=== PATIENT | male | born 1945 | race Caucasian/White ===

== ENCOUNTER 2019-11-04 06:55 | Day surgery (SDC) | payer MEDICARE, SELFPAY ==
[2019-11-03 09:55] VITALS: BMI 26.6
[2019-11-04 07:26] VITALS: BP 142/79; PULSE 82; RESP 18; TEMP 36.4; O2SAT 97
--- NOTE | 2019-11-04 07:36 | ANES.PREANE2 ---
Pre-Anesthetic Assessment Pre-Anesthetic Assessment: Height/Weight: Height 1.65 m Weight 72.575 kg Temp Pulse Resp BP Pulse Ox 97.6 F 82 18 142/79 97 11/04/19 07:26 11/04/19 07:26 11/04/19 07:26 11/04/19 07:26 11/04/19 07:26 Proposed Procedure: Operation Date: 11/04/19 08:30 Proposed Procedures p Inguinal Hernia Repair w/ Mesh(Right) - Rosalio Chan MD Last intake: Intake Last Liquid Date 11/04/19 Last Liquid Time 06:00 Last Solid Date 11/03/19 Last Solid Time 17:00 Social: Social History: Tobacco (quit) and No alcohol Exam: Pre-Anes Outpt Exam: alert, oriented x 3, clear to auscultation bilaterally and regular rate & rhythm Airway: Submandibular: WNL Cervical ROM: WNL MP: 2 Dentition: False (upper and lower) History/ROS: No significant history except as noted Pulmonary: Pulmonary: None reported CV/HEM: CV/HEM: CAD, HTN and IN : : None reported Hepatic: Hepatic: None reported GI: GI: None reported Metabolic: Metabolic: Hyperlipidemia Musc/skel: Musc/skel: RA Neuropsych: Neuropsych: None reported Anesthetic Plan: ASA status: 3 Anesthesia: Anesthesia Evaluation and MAC Risk of > 500 ml blood loss (7ml/kg in children): No PFSH Anesthesia PFSH: Medical History History of BPH Hx of coronary artery disease Hx of hypercholesterolemia Hx of primary hypertension Hx of rheumatoid arthritis Surgical History Hx of angioplasty Hx of bilateral cataract extraction Hx of hand surgery Hx of inguinal hernia repair Family History Other Diabetes Social History Smoking and tobacco status: former smoker Data Anesthesia Cardiac Studies: No Data to Display
--- NOTE | 2019-11-04 07:47 | W.PM.OPSUD ---
Surgery/Procedure H&P Update DATE OF PROCEDURE: November 04, 2019 DATE H&P PERFORMED: 10/19/19 H&P UPDATE INFORMATION: No changes to prior documentation PLANNED PROCEDURE: Operation Date: 11/04/19 08:30 Proposed Procedures p Inguinal Hernia Repair w/ Mesh(Right) - Rosalio Chan MD
[2019-11-04] MEDS: sodium chloride 0.9% 1,000 ML 30 ML IV (07:49)
--- NOTE | 2019-11-04 09:28 | PM.OP ---
Operative Report Date of procedure: November 04, 2019 Pre-op Diagnosis: Right inguinal hernia. Post-op Diagnosis: Right indirect inguinal hernia. Procedure Done: Repair of right inguinal hernia with mesh. Implants: Large mesh plug. Pathology: none sent Surgeon: Rosalio Chan Anesthesia: MAC Estimated blood loss (mL): 5 Complications: None. Condition: stable Disposition: same day Procedure: The patient was brought to the operating room and was placed in a supine position on the operating room table. A monitored anesthetic was induced. The right inguinal region was prepped and draped in a sterile fashion. A combination of 1% lidocaine and 0.5% bupivacaine with 1-200,000 parts epinephrine was used for local anesthesia throughout the procedure. A transverse incision was carried out above the level of the pubic tubercle. Cautery was used to divide the subcutaneous tissue down to the external oblique aponeurosis which was incised in parallel with its fibers over the inguinal canal. The spermatic cord was looped with a [place] drain. An indirect hernia was found at the internal ring. The hernia was large enough, however, that had obliterated almost the entire floor of the inguinal canal down to the tubercle. Some preperitoneal fat coming through the area of the previous internal ring was isolated and was excised at the internal ring. The hernia sac and contents were carefully freed from the cord structures down to the internal ring and the hernia sac was reduced. A large mesh plug was used to hold the hernia sac in a reduced position and was held in place with sutures of 0 Prolene that were used to connect the conjoined area medially to the reflecting edge of Poupart's ligament laterally all the way down to the tubercle, essentially reconstructing the inguinal canal floor. The onlay patch was anchored at the tubercle with a suture of 0 Prolene and was laid along the new inguinal canal floor, allowing the cord structures to pass through the precut hole in the mesh. The two wings of mesh were sewn to each other above the level of the internal ring with a suture of 0 Prolene. The external oblique aponeurosis was closed over the top of the cord using a running suture of 3-0 Vicryl. The wound was irrigated with saline. The subcutaneous tissue was brought together with a simple suture of 3-0 Vicryl and the skin was approximated using a running subcuticular suture of 3-0 Vicryl. Benzoin and Steri-Strips were placed over the incision and a sterile bandage followed. The patient was taken to the recovery area in stable condition postoperatively.
[2019-11-04 09:43] VITALS: BP 94/41; PULSE 77; RESP 16; TEMP 36.1; O2SAT 95
[2019-11-04 10:05] VITALS: BP 118/55; PULSE 69; RESP 18; TEMP 36.5; O2SAT 96
== END 2019-11-04 10:30 | disposition home or self-care (01) ==
PROVIDERS: PCP Family Medicine; Visit Provider Surgery
PROC: (CPT 49505; principal; 2019-11-04 08:30)
DX: K40.90 Unilateral inguinal hernia, without obstruction or gangrene, not specified as recurrent (principal); I10 Essential (primary) hypertension; M06.9 Rheumatoid arthritis, unspecified; N40.0 Benign prostatic hyperplasia without lower urinary tract symptoms; Z79.891 Long term (current) use of opiate analgesic; Z79.02 Long term (current) use of antithrombotics/antiplatelets; I25.10 Atherosclerotic heart disease of native coronary artery without angina pectoris; I25.2 Old myocardial infarction; E78.5 Hyperlipidemia, unspecified
CPT/HCPCS: 49505; 12345; C1781; J0690; J2001; J2704; J3010; J3490; J7030

== ENCOUNTER → 2020-10-30 14:12 | Outpatient (BNVA) | payer MEDICARE, SELFPAY | PROVIDERS: PCP Family Medicine; Referring Provider Nurse Practitioner Family; Visit Provider Orthopaedic Surgery | DX: M25.511 Pain in right shoulder (principal) | CPT/HCPCS: 73030 ==

== ENCOUNTER → 2021-08-29 08:18 | Outpatient (BNVA) | payer MEDICARE, SELFPAY | PROVIDERS: PCP Family Medicine; Referring Provider Nurse Practitioner Family; Visit Provider Specialist | DX: M19.011 Primary osteoarthritis, right shoulder (principal); M75.121 Complete rotator cuff tear or rupture of right shoulder, not specified as traumatic | CPT/HCPCS: 73030 ==

== ENCOUNTER 2023-02-06 18:43 | Inpatient (IN) | payer MEDICARE, SELFPAY ==
[2023-02-06] VITALS (7 sets, daily range): BP systolic 118–143; BP diastolic 68–92; PULSE 93–98; RESP 14–18; TEMP 36.6; O2SAT 88–94; BMI 24.3
--- NOTE | 2023-02-06 19:04 | XRR_ITS ---
PROCEDURE INFORMATION: Exam: XR Chest Exam date and time: 02/06/2023 7:12 PM Age: 77 years old Clinical indication: Shortness of breath; Additional info: SOB TECHNIQUE: Imaging protocol: Radiologic exam of the chest. Views: 1 view. COMPARISON: CR XR shoulder RT min 2V* [id number] 08/29/2021 8:26 AM FINDINGS: Lungs: Mild elevation left hemidiaphragm with scattered subsegmental atelectasis left lower lung zone. Indistinct nodular density right tracheobronchial angle with some adjacent indistinct linear opacities right upper lobe of uncertain etiology. Pleural spaces: Unremarkable. No pleural effusion. No pneumothorax. Heart/Mediastinum: Heart appears borderline enlarged on this portable chest. Bones/joints: Unremarkable for age. XR/XR chest 1V portable [id number] IMPRESSION: 1. Mild elevation left hemidiaphragm with scattered subsegmental atelectasis left lower lung zone. 2. Nonspecific findings right upper lobe for which follow-up CT chest recommended for further assessment.
--- NOTE | 2023-02-06 19:07 | PC.NURSE ---
Report received from MAGDA Montanez at this time
[2023-02-06 19:34] LABS: ABG PH Result 7.42 (7.35-7.45); Arterial Blood Gas Hematocrit 44.7 % (42-52); Base Excess ABG 2.1 mmol/L (-2.0-2.0); Blood Gas Allen Test Pos; Blood Gas Sample Site Radial, left; Blood Gas Sample Type Arterial; Carboxyhemoglobin 1.6 %THgb (0.4-20.1); HCO3 ABG 26.8 mmol/L (22-26); Methemoglobin 0.4 % (0.4-1.5); Oxygen Device NC; PO2 ABG 60.6 mmHg (80.0-100.0); Total Hemoglobin 14.6 g/dL (14-18)
[2023-02-06] MEDS: morphine 4 mg/mL SDV 1 mL 2 MG IVP (19:34)
[2023-02-06 19:55] LABS: Basophils % 0.3 %; Eosinophils # 0.1 10^3/uL (0.0-0.8); Eosinophils % 0.6 %; Hematocrit 44.2 % (42.0-52.0); Hemoglobin 14.5 g/dL (11.7-16.6); Lymphocytes # 1.5 10^3/uL (0.8-4.8); Lymphocytes % 10.8 %; Mean Corpuscular HGB Conc 32.8 g/dL (30.0-36.0); Mean Corpuscular Hemoglobin 31.4 pg (28.0-34.0); Mean Corpuscular Volume 95.7 fl (80-94); Mean Platelet Volume 10.9 fL (7.4-10.4); Monocytes # 1.7 10^3/uL (0.2-0.9); Monocytes % 12.1 %; Neutrophils # 10.66 10^3/uL (1.8-7.7); Neutrophils % 75.5 %; Nucleated Red Blood Cells % 0 %; Platelet Count 165 10^3/cmm (130-400); Red Blood Count 4.62 10^6/uL (4.1-5.3); White Blood Count 14.1 10^3/uL (4.0-10.0)
[2023-02-06 20:09] LABS: Troponin T (5th) Once 24 ng/L (0-15)
[2023-02-06 20:21] LABS: D Dimer >= 20.00 ug/mIFEU (0-0.59)
[2023-02-06 20:25] LABS: Alanine Aminotransferase 25 U/L (0-41); Albumin Level 4.1 g/dL (3.5-5.2); Alkaline Phosphatase 57 U/L (40-130); Anion Gap 15.5 (5-19); Aspartate Amino Transferase 39 U/L (0-40); Blood Urea Nitrogen 19 mg/dL (8-23); Calcium 9.1 mg/dL (8.5-10.5); Carbon Dioxide 24 mmol/L (22-29); Chloride 102 mmol/L (98-107); Glucose 112 mg/dL (65-115); NT Pro B Type Natriuretic Pept 136 pg/mL (0-450); Osmolality Calculated 289 mOsm/kg (285-295); Potassium 3.5 mmol/L (3.5-5.1); Sodium 138 mmol/L (136-145); Total Bilirubin 0.8 mg/dL (0.15-1.2); Total Protein 6.1 g/dL (6.6-8.7)
--- NOTE | 2023-02-06 20:34 | CTR_ITS ---
PROCEDURE INFORMATION: Exam: CTA Chest With Contrast Exam date and time: 02/06/2023 9:22 PM Age: 77 years old Clinical indication: Abnormal findings; Abnormal diagnostic tests; Elevated d-dimer; Shortness of breath; Prior surgery; Surgery date: 6+ months; Surgery type: Coronary angioplasty; Patient HX: SOB with hypxoia. D dimer >than 20.0; Additional info: SOB. Hypoxia with elevated d-dimer TECHNIQUE: Imaging protocol: Computed tomographic angiography of the chest with contrast. Exam focused on the arteries. 3D rendering (Not supervised by radiologist): MIP and/or 3D reconstructed images were created by the technologist. Radiation optimization: All CT scans at this facility use at least one of these dose optimization techniques: automated exposure control; mA and/or kV adjustment per patient size (includes targeted exams where dose is matched to clinical indication); or iterative reconstruction. Contrast material: OMNI 350; Contrast volume: 76 ml; Contrast route: INTRAVENOUS (IV); REPORTING DATA: Count of CT and Cardiac NM exams in prior 12 months: This patient has received 0 known CTs and 0 known cardiac nuclear medicine studies in the 12 months prior to the current study. COMPARISON: CT angio chest performed 2009 RADIATION DOSE METRICS: Total DLP (mGy-cm): 315.76 FINDINGS: Pulmonary arteries: Pulmonary vasculature is adequately opacified without filling defects or other evidence of acute pulmonary embolism. Aorta: Diffuse atherosclerotic changes throughout the thoracic aorta. No aortic aneurysm or evidence of dissection. Lungs: Moderate elevation left hemidiaphragm with left basilar subsegmental atelectasis. Indistinct masslike soft tissue thickening along the right tracheobronchial angle which in the coronal plane measures 4.3 x 2.2 cm with some localized thickening of the adjacent mediastinal pleural reflection developed from prior study concerning for possibility of neoplastic process and needs further evaluation. There is mild chronic biapical fibrosis as well as some subpleural interstitial lung changes that are probably chronic. Pleural spaces: See Lungs finding. Heart: Heart is mildly enlarged. Moderate calcification of coronary arteries. No significant pericardial effusion. Lymph nodes: Mild mediastinal lymphadenopathy some of which is partially calcified stable and presumed granulomatous in nature. Bones/joints: Unremarkable. No acute fracture. Soft tissues: Unremarkable. CT/CT angio chest PE protcl [id number] IMPRESSION: 1. Negative CT angiogram of the chest. No evidence of acute pulmonary embolism. 2. Interval development of focal masslike soft tissue thickening along the right tracheobronchial angle concerning for possible neoplastic process. CT PET scan recommended for further assessment. 3. Mild mediastinal lymphadenopathy partially calcified, stable from 2009 likely granulomatous in nature. A 4. Chronic elevation left hemidiaphragm with left lower lobe subsegmental atelectasis. 5. Additional nonemergent findings as above.
--- NOTE | 2023-02-06 20:39 | ED_ITS ---
HPI - SOB/Dyspnea General: Chief Complaint: Shortness of Breath/Dyspnea Stated Complaint: resp distress Time Seen by Provider: 02/06/23 19:03 History of Present Illness: HPI Narrative: 77-year-old male presented emergency room via EMS with a complaint of shortness of breath since this morning. Patient reveals a history of tobacco abuse but stopped smoking about 50 years ago. Denies any COPD or emphysema. Upon present emergency room patient was complaining of lower back pain and described the pain as sharp sensation with severity of 9 out of 10 patient reveals that he fell off a ladder to 3 days ago. Patient denies any lower extremity numbness or tingling. Bowel or bladder dysfunction. Denies any head injury or loss of consciousness no sick contact or recent foreign travel. Denies any cough, coughing up blood or vomiting blood. Associated symptoms: Deny chest congestion or hemoptysis Review of Systems General: Reports: 10 or more systems reviewed and unremarkable except in HPI and below Resp: Reports: dyspnea; Denies: productive cough, non-productive cough, wheezing, stridor, pain on inspiration, change in phlegm color, hemoptysis or chest congestion : Denies: difficulty urinating, dysuria, urinary frequency, urinary urgency, urinary hesitancy, urinary dribbling, difficulty starting urination, change in urine stream, nocturia, oliguria, urinary incontinence, hematuria, genital pain, testicular pain, testicular mass or scrotal swelling Musc: Reports: back pain; Denies: joint swelling, joint redness, joint stiffness or limited range of motion Neuro: Denies: headache(s), numbness in extremities, weakness in extremities, sensory changes, lack of coordination or difficulty walking [facility] PFSH: Medical History (Updated 02/07/23 @ 00:23 by Dylon Cardenas MD) History of BPH Hx of coronary artery disease Hx of hypercholesterolemia Hx of primary hypertension Hx of rheumatoid arthritis Surgical History Hx of angioplasty Hx of bilateral cataract extraction Hx of hand surgery Hx of inguinal hernia repair Family History Other Diabetes Social History (Updated 02/07/23 @ 00:06 by Sandeep Moss MD) Smoking and tobacco status: former smoker Alcohol intake: former Physical Exam Const: COMMON NORMALS: no acute distress, average body habitus, patient oriented x3, no limitations, healthy appearing, alert and well nourished Neck/C-Spine: COMMON NORMALS: no JVD Chest: COMMONS NORMALS: normal inspection of the chest, normal palpation of entire chest wall, normal inspection of the breasts and normal palpation of the breasts Breast/axilla inspection: Yes normal inspection of the breasts BREAST/AXILLA PALPATION: Yes normal palpation of the breasts Resp: AUSCULTATION: diminished lung sounds Cardio: COMMON NORMALS: no JVD, regular rate, regular rhythm, S1 normal heart sound present, S2 normal heart sound present, No gallops present (Cardio), No clicks present (Cardio), No murmurs present (Cardio), No rub (Cardio) and Peripheral pulses 2+ throughout RATE: regular rate RHYTHM: regular rhythm HEART SOUNDS: S1 normal heart sound present and S2 normal heart sound present PERIPHERAL PULSES: Peripheral pulses 2+ throughout GI: COMMON NORMALS: Soft to palpation INSPECTION: No Localized GI swelling present AUSCULTATION: Yes normoactive bowel sounds PALPATION: Yes Soft to palpation and Yes Other GI palpation findings present (Right upper quadrant ecchymosis) Back/Pelvis: PELVIS: Yes buttocks normal, Yes no pain with anterior-posterior compression, Yes no pain with lateral compression and Yes tenderness over symphysis pubis OTHER: Pain along the upper lumbar and lower thoracic area. No obvious laceration, ecchymosis or contusion. Extremity: COMMON NORMALS: normal to inspection, full ROM, capillary refill normal, no joint enlargement, no clubbing, cyanosis or edema, no calf tenderness and no pedal edema Neuro: COMMON NORMALS: patient oriented x3 SENSORIUM/ORIENTATION: Yes alert Skin: COMMON NORMALS: no rashes or lesions noted, no wounds, turgor normal, no jaundice, no petechiae and no mottling GENERAL SKIN EXAM: no rashes or lesions noted and turgor normal Course Vital Signs: Vital signs: Vital Signs Temperature 98.5 F 02/07/23 03:48 Pulse Rate 75 02/07/23 05:52 Respiratory Rate 18 02/07/23 04:18 Blood Pressure 149/78 02/07/23 03:48 Pulse Oximetry 90 02/07/23 03:48 Oxygen Delivery Me thod Nasal Cannula 02/07/23 03:48 Oxygen Flow Rate 5 02/07/23 00:51 MDM - SOB/Dyspnea Medical Decision Making Patient made comfortable emergency room. Patient had extensive work-up done i ncluding CTs, CBC, CMP, ABG and chest x-ray. Discussed patient's care and lab finding with patient and family. Discussed patient with the hospitalist. Patient was admitted for further evaluation and treatment. Differential Diagnosis Likely acute exacerbation of chronic obstructive airways disease, congestive heart failure, community acquired pneumonia, asthma with exacerbation and pulmonary embolism Lab Data 02/06/23 19:25 02/06/23 19:25 Labs/Radiology: Radiology Impressions Chest X-Ray 02/06/23 19:04 IMPRESSION: 1. Mild elevation left hemidiaphragm with scattered subsegmental atelectasis left lower lung zone. 2. Nonspecific findings right upper lobe for which follow-up CT chest recommended for further assessment. Chest CTA 02/06/23 20:34 IMPRESSION: 1. Negative CT angiogram of the chest. No evidence of acute pulmonary embolism. 2. Interval development of focal masslike soft tissue thickening along the right tracheobronchial angle concerning for possible neoplastic process. CT PET scan recommended for further assessment. 3. Mild mediastinal lymphadenopathy partially calcified, stable from 2009 likely granulomatous in nature. A 4. Chronic elevation left hemidiaphragm with left lower lobe subsegmental atelectasis. 5. Additional nonemergent findings as above. Venous Duplex 02/06/23 22:17 IMPRESSION: No evidence of deep vein thrombosis. Abdomen/Pelvis CT 02/06/23 22:46 IMPRESSION: 1. Acute L1 central compression deformity with posterior bony retropulsion causing [id number] stenosis of the spinal canal. This can be further assessed with a MRI for follow-up. 2. Small soft tissue contusion injury right ventral abdominal wall. No acute intra-abdominal or intrapelvic injury identified on CT. 3. There is a 4.1 cm infrarenal abdominal aortic aneurysm present. COMMENTS: Consistent with the [employer]'s Incidental Findings Committee white paper (J Am Itz Radiol 2018): Any incidental renal lesion less than 1 cm or classified as too small to characterize, or any incidental cystic renal lesion characterized as simple-appearing, is likely benign. No follow-up imaging is recommended for these lesions per consensus recommendations based on imaging criteria. Lumbar Spine CT 02/06/23 22:46 IMPRESSION: Acute L1 central compression deformity with posterior bony retropulsion causing moderate stenosis of the spinal canal. This can be further assessed with a MRI for follow-up. Thoracic Spine CT 02/06/23 22:46 IMPRESSION: Mild superior endplate height loss is seen in T2 and T3 which is age indeterminate. Correlate with point tenderness. This can be better assessed with an MRI for follow-up. Laboratory Results WBC 14.1 10^3/uL (4.0-10.0) H 02/06/23 19:25 RBC 4.62 10^6/uL (4.1-5.3) 02/06/23 19:25 Hgb 14.5 g/dL (11.7-16.6) 02/06/23 19:25 Hct 44.2 % (42.0-52.0) 02/06/23 19:25 MCV 95.7 fl (80-94) H 02/06/23 19:25 MCH 31.4 pg (28.0-34.0) 02/06/23 19:25 MCHC 32.8 g/dL (30.0-36.0) 02/06/23 19:25 RDW 14.0 % (12.1-15.1) 02/06/23 19:25 Plt Count 165 10^3/cmm (130-400) 02/06/23 19:25 MPV 10.9 fL (7.4-10.4) H 02/06/23 19:25 Neut % (Auto) 75.5 % 02/06/23 19:25 Lymph % (Auto) 10.8 % 02/06/23 19:25 [place] % (Auto) 12.1 % 02/06/23 19:25 Eos % (Auto) 0.6 % 02/06/23 19:25 Baso % (Auto) 0.3 % 02/06/23 19:25 Neut # (Auto) 10.66 10^3/uL (1.8-7.7) H 02/06/23 19:25 Lymph # (Auto) 1.5 10^3/uL (0.8-4.8) 02/06/23 19:25 [place] # (Auto) 1.7 10^3/uL (0.2-0.9) H 02/06/23 19:25 Eos # (Auto) 0.1 10^3/uL (0.0-0.8) 02/06/23 19:25 Baso # (Auto) 0.0 10^3/uL (0.0-0.1) 02/06/23 19:25 Nucleated RBC % (auto) 0 % 02/06/23 19:25 Nucleated RBCs # 0.0 /100WBC 02/06/23 19:25 D-Dimer >= 20.00 ug/mIFEU (0-0.59) H 02/06/23 19:25 Specimen Type Arterial 02/06/23 19:25 Sample Site Radial, left 02/06/23 19:25 ABG pH 7.42 (7.35-7.45) 02/06/23 19:25 ABG pCO2 41.0 mmHg (35-45) 02/06/23 19:25 ABG pO2 60.6 mmHg (80.0-100.0) L 02/06/23 19:25 ABG HCO3 26.8 mmol/L (22-26) H 02/06/23 19:25 ABG Base Excess 2.1 mmol/L (-2.0-2.0) H 02/06/23 19:25 [place]derick Test Pos 02/06/23 19:25 Hematocrit 44.7 % (42-52) 02/06/23 19:25 Hgb O2 Saturation 91.0 % (95-100) L 02/06/23 19:25 Carboxyhemoglobin 1.6 %THgb (0.4-20.1) 02/06/23 19:25 Methemoglobin 0.4 % (0.4-1.5) 02/06/23 19:25 Total Hemoglobin 14.6 g/dL (14-18) 02/06/23 19:25 O2 Delivery Device Nc 02/06/23 19:25 O2 Liters/Min 4.0 % 02/06/23 19:25 FiO2 40.0 % 02/06/23 19:25 [place] [employer] Pumper ID [email or web address] 02/06/23 19:25 Sodium 138 mmol/L (136-145) 02/06/23 19:25 Potassium 3.5 mmol/L (3.5-5.1) 02/06/23 19:25 Chloride 102 mmol/L (98-107) 08/17/23 19:25 Carbon Dioxide 24 mmol/L (22-29) 02/06/23 19:25 Anion Gap 15.5 (5-19) 02/06/23 19:25 BUN 19 mg/dL (8-23) 02/06/23 19:25 Creatinine 0.9 mg/dL (0.7-1.2) 02/06/23 19:25 GFR Calculation Not Reportable 02/06/23 19:25 Glucose 112 mg/dL (65-115) 02/06/23 19:25 Calculated Osmolality 289 mOsm/kg (285-295) 02/06/23 19:25 Calcium 9.1 mg/dL (8.5-10.5) 02/06/23 19:25 Total Bilirubin 0.8 mg/dL (0.15-1.2) 02/06/23 19:25 AST 39 U/L (0-40) 02/06/23 19:25 ALT 25 U/L (0-41) 02/06/23 19:25 Alkaline Phosphatase 57 U/L (40-130) 02/06/23 19:25 Troponin T Gen 5 ng/L 24 ng/L (0-15) H 02/06/23 19:25 NT-Pro-B Natriuret Pep 136 pg/mL (0-450) 02/06/23 19:25 Total Protein 6.1 g/dL (6.6-8.7) L 02/06/23 19:25 Albumin 4.1 g/dL (3.5-5.2) 02/06/23 19:25 Globulin 2.0 g/dL (1.3-4.6) 02/06/23 19:25 Critical Care Time Critical Care Time: Critical Care Time: Yes Total Critical Care Time: 45 Attestation: Time spent reviewing past medical history, time spent discussing patient with the hospitalist and family member. Time spent with multiple examination after all treatments. Discharge Plan Discharge Patient Disposition: Admitted As Inpatient Admit Provider: Sandeep Moss Clinical Impression: Mass of left lung, Hypoxia, Back pain, Fall, Compression fracture Condition: Stable Coding Level of Care Code ED Infrastructure Director for Yair Ag
[2023-02-06] MEDS: iohexol 350 mg/mL 500 mL Btl (per mL) IV ×2 (21:26→23:27)
--- NOTE | 2023-02-06 22:17 | USR_ITS ---
PROCEDURE INFORMATION: Exam: US Duplex Lower Extremity Veins, Bilateral Exam date and time: 02/06/2023 10:45 PM Age: 77 years old Clinical indication: Leg, lower; Bilateral; Patient HX: PT with back and lower ext pain; Additional info: For dvt TECHNIQUE: Imaging protocol: Real-time duplex ultrasound of the bilateral extremities with 2-D ohara scale, color Doppler flow and spectral waveform analysis including responses to compression and other maneuvers (when performed) with image documentation. Complete exam focused on the lower extremity veins. COMPARISON: No relevant prior studies available. FINDINGS: Right deep veins: Unremarkable. The common femoral, femoral, proximal profunda femoral and popliteal veins are patent without thrombus. Normal Doppler waveforms. Normal compressibility and/or augmentation response. Left deep veins: Unremarkable. The common femoral, femoral, proximal profunda femoral and popliteal veins are patent without thrombus. Normal Doppler waveforms. Normal compressibility and/or augmentation response. Superficial veins: Bilateral saphenofemoral junctions are patent without thrombus. Soft tissues: Unremarkable. US/CV venous duplex [facility] [id number] IMPRESSION: No evidence of deep vein thrombosis.
--- NOTE | 2023-02-06 22:46 | CTR_ITS ---
PROCEDURE INFORMATION: Exam: CT Thoracic Spine Without Contrast Exam date and time: 02/06/2023 9:22 PM Age: 77 years old Clinical indication: Injury or trauma; Blunt trauma (contusions or hematomas); Prior surgery; Surgery date: 6+ months; Surgery type: Coronary stent. Gb; Patient HX: Fall yesterday. C/O back pain with contusion to anterior abdomen at RT lumbar region. On anticoagulants; Additional info: Pain post fall TECHNIQUE: Imaging protocol: Computed tomography of the thoracic spine without contrast. Radiation optimization: All CT scans at this facility use at least one of these dose optimization techniques: automated exposure control; mA and/or kV adjustment per patient size (includes targeted exams where dose is matched to clinical indication); or iterative reconstruction. REPORTING DATA: Count of CT and Cardiac NM exams in prior 12 months: This patient has received 0 known CTs and 0 known cardiac nuclear medicine studies in the 12 months prior to the current study. COMPARISON: 1. CR (CHEST, ) 02/06/2023 7:[address] angio chest PE protcl [id number] 02/06/2023 9:22 PM RADIATION DOSE METRICS: Total DLP (mGy-cm): 315.76 FINDINGS: Bones/joints: The T2 and T3 vertebrae have mild superior endplate height loss. The other thoracic vertebral body heights are maintained. The alignment is near anatomic. Soft tissues: Unremarkable. Lungs: Elevated left hemidiaphragm with left lower lobe infiltrate or atelectasis again present. Please see dedicated same-day CT chest for additional findings. CT/CT thoracic spine recon [id number] IMPRESSION: Mild superior endplate height loss is seen in T2 and T3 which is age indeterminate. Correlate with point tenderness. This can be better assessed with an MRI for follow-up.
--- NOTE | 2023-02-06 22:46 | CTR_ITS ---
PROCEDURE INFORMATION: Exam: CT Lumbar Spine Without Contrast Exam date and time: 02/06/2023 11:25 PM Age: 77 years old Clinical indication: Injury or trauma; Blunt trauma (contusions or hematomas); Patient HX: Fall yesterday. C/O back pain with contusion to anterior abdomen at RT lumbar region. On anticoagulants; Additional info: Pain post fall TECHNIQUE: Imaging protocol: Computed tomography of the lumbar spine without contrast. Radiation optimization: All CT scans at this facility use at least one of these dose optimization techniques: automated exposure control; mA and/or kV adjustment per patient size (includes targeted exams where dose is matched to clinical indication); or iterative reconstruction. REPORTING DATA: Count of CT and Cardiac NM exams in prior 12 months: This patient has received 0 known CTs and 0 known cardiac nuclear medicine studies in the 12 months prior to the current study. COMPARISON: 1. CT thoracic spine recon [id number] 02/06/2023 9:[address] abdomen pelvis w con* [id number] 02/06/2023 11:25 PM RADIATION DOSE METRICS: Total DLP (mGy-cm): 527.53 FINDINGS: Bones/joints: L1 acute appearing central compression deformity with approximally 25% loss of height. There is mild posterior bony retropulsion seen with moderate associated stenosis of the spinal canal. No other fracture. There are bilateral nondisplaced L5-S1 pars interarticularis defects present. Degenerative disc disease causes moderate stenosis of the spinal canal at L3-L4. Kidneys and ureters: Renal cysts again seen. Vasculature: Redemonstration of a infrarenal abdominal aortic aneurysm with associated atherosclerotic changes. Soft tissues: Unremarkable. CT/CT lumbar spine recon [id number] IMPRESSION: Acute L1 central compression deformity with posterior bony retropulsion causing moderate stenosis of the spinal canal. This can be further assessed with a MRI for follow-up.
--- NOTE | 2023-02-06 22:46 | CTR_ITS ---
PROCEDURE INFORMATION: Exam: CT Abdomen And Pelvis With Contrast Exam date and time: 02/06/2023 11:25 PM Age: 77 years old Clinical indication: Injury or trauma; Blunt; Abdominal wall; Prior surgery; Surgery date: 6+ months; Surgery type: Coronary stent. Gb; Patient HX: Fall yesterday. C/O back pain with contusion to anterior abdomen at RT lumbar region. On anticoagulants; Additional info: Pain post fall TECHNIQUE: Imaging protocol: Computed tomography of the abdomen and pelvis with contrast. Radiation optimization: All CT scans at this facility use at least one of these dose optimization techniques: automated exposure control; mA and/or kV adjustment per patient size (includes targeted exams where dose is matched to clinical indication); or iterative reconstruction. Contrast material: OMNI 350; Contrast volume: 75 ml; Contrast route: INTRAVENOUS (IV); REPORTING DATA: Count of CT and Cardiac NM exams in prior 12 months: This patient has received 0 known CTs and 0 known cardiac nuclear medicine studies in the 12 months prior to the current study. COMPARISON: CT thoracic spine recon [id number] 02/06/2023 9:22 PM RADIATION DOSE METRICS: Total DLP (mGy-cm): 527.53 FINDINGS: Lungs: Left lower lobe infiltrate or atelectasis is unchanged with comparison same day CT chest. Left hemidiaphragmatic elevation is unchanged. Diaphragm: Small-sized hiatal hernia. Liver: Normal. No mass. Gallbladder and bile ducts: Normal. No calcified stones. No ductal dilation. Pancreas: Normal. No ductal dilation. Spleen: Normal. No splenomegaly. Adrenal glands: Normal. No mass. Kidneys and ureters: Bilateral renal cysts are seen the largest in the upper pole measures 6.2 cm. Stomach and bowel: There are colonic diverticuli present without inflammation. Appendix: No evidence of appendicitis. Intraperitoneal space: Unremarkable. No free air. No significant fluid collection. Vasculature: Atherosclerotic changes of the abdominal aorta with infrarenal aneurysm measuring 4.1 cm AP dimension. No dissection is visible. Severe stenosis is seen of the origin of the left common iliac artery. Lymph nodes: Unremarkable. No enlarged lymph nodes. Urinary bladder: The bladder is distended with excreted contrast. Reproductive: The prostate gland is mildly prominent. Bones/joints: L1 acute appearing central compression deformity with approximally 25% loss of height. There is mild posterior bony retropulsion seen with [id number] associated stenosis of the spinal canal. There are bilateral nondisplaced L5-S1 pars interarticularis defects present. Soft tissues: There is a soft tissue contusion inferior right ventral abdominal wall. CT/CT abdomen pelvis w con* [id number] IMPRESSION: 1. Acute L1 central compression deformity with posterior bony retropulsion causing [id number] stenosis of the spinal canal. This can be further assessed with a MRI for follow-up. 2. Small soft tissue contusion injury right ventral abdominal wall. No acute intra-abdominal or intrapelvic injury identified on CT. 3. There is a 4.1 cm infrarenal abdominal aortic aneurysm present. COMMENTS: Consistent with the [employer]'s Incidental Findings Committee white paper (J Am Itz Radiol 2018): Any incidental renal lesion less than 1 cm or classified as too small to characterize, or any incidental cystic renal lesion characterized as simple-appearing, is likely benign. No follow-up imaging is recommended for these lesions per consensus recommendations based on imaging criteria.
--- NOTE | 2023-02-06 22:59 | PM.HP ---
Providers/Chief Complaint Admitting Physician: Sandeep Moss MD Primary Care Provider: Jovany Moncada DO Chief Complaint: resp distress History of Present Illness Fco Quinones is a 77 year old male who presents to the emergency department complaining of low back pain. I was initially called on him secondary to hypoxia, and elevated D-dimer. Upon evaluating the patient, further historical elements came to light. He reports he fell 4 days ago off a ladder. He thinks he was on the second rung. He did not have back pain initially, but in the last 24 hours has severe back pain, upper lumbar area, nonradiating. He has not had incontinence. He reports it hurts greatly, even when he tries to take a breath. He reports he was short of breath when he came in, but he thinks it was due to the pain. He has not been coughing up any sputum. He has had a little bit of vomiting. No diarrhea. No blood in stool, black or tarry stool, blood in emesis. No ill contacts. He does take Plavix. After these further history items came to light, I discussed this with the ER doctor and a CT abdomen and pelvis along with CT lung thoracolumbar spine have been ordered. Review of Systems General: Reports: 10 or more systems reviewed and unremarkable except in HPI and below Card: Denies: chest pain Resp: Reports: dyspnea; Denies: productive cough or non-productive cough GI: Reports: vomiting; Denies: abdominal pain, nausea, hematochezia or melena Medications/Allergies Home Medications Medication Instructions Recorded Confirmed Last Taken Type amlodipine 5 mg tablet 5 mg PO DAILY 11/03/19 08/29/21 11/04/19 06:00 History calcium carbonate 600 mg calcium 600 mg PO DAILY 11/03/19 08/29/21 11/03/19 18:00 History (1,500 mg) tablet clopidogrel 75 mg tablet 75 mg PO DAILY 11/03/19 08/29/21 11/02/19 History folic acid 800 mcg tablet 0.8 mg PO DAILY 11/03/19 08/29/21 11/03/19 06:00 History hydrocodone 5 mg-acetaminophen 325 1 tab PO Q6H PRN Pain 11/03/19 08/29/21 11/02/19 History mg tablet lisinopril 5 mg tablet 5 mg PO DAILY 11/03/19 08/29/21 11/04/19 06:00 History loperamide 2 mg capsule 2 mg PO DAILY PRN Diarrhea 11/03/19 08/29/21 11/03/19 06:00 History magnesium hydroxide 400 mg/5 mL 400 mg PO DAILY PRN Diarrhea 11/03/19 08/29/21 11/03/19 18:00 History oral suspension (Milk of Magnesia) methotrexate sodium 2.5 mg tablet 2.5 mg PO DAILY 11/03/19 08/29/21 11/03/19 18:00 History multivitamin 1 tab PO DAILY 11/03/19 08/29/21 11/03/19 12:00 History omega 9-lrh-apr-fish oil 120 1 cap PO DAILY 11/03/19 08/29/21 11/03/19 06:00 History mg-180 mg-500 mg capsule (Fish Oil) polyethylene glycol 3350 17 gram 17 g PO DAILY 11/03/19 08/29/21 Unknown History oral powder packet (Miralax) prednisone 5 mg tablet 5 mg PO DAILY 11/03/19 08/29/21 11/03/19 18:00 History rosuvastatin 20 mg tablet (Crestor) 20 mg PO DAILY 11/03/19 08/29/21 11/03/19 18:00 History simethicone 80 mg chewable tablet 80 mg PO DAILY 11/03/19 08/29/21 Unknown History hydrocodone 5 mg-acetaminophen 325 1 - 2 tab PO Q5H PRN pain #30 tabs 11/04/19 08/29/21 Unknown Rx mg tablet Allergies Allergy/AdvReac Type Severity Reaction Status Date / Time No Known Allergies Allergy Verified 02/06/23 18:52 PFSH Acute PFSH: Medical History (Updated 02/07/23 @ 00:23 by Dylon Cardenas MD) History of BPH Hx of coronary artery disease Hx of hypercholesterolemia Hx of primary hypertension Hx of rheumatoid arthritis Surgical History Hx of angioplasty Hx of bilateral cataract extraction Hx of hand surgery Hx of inguinal hernia repair Family History Other Diabetes Social History (Updated 02/07/23 @ 00:06 by Sandeep Moss MD) Smoking and tobacco status: former smoker Alcohol intake: former Vitals/I&O/Wt Last Vital Signs Temp 97.9 F 02/06/23 18:45 Pulse 95 02/06/23 20:05 Resp 18 02/06/23 20:05 BP 135/68 02/06/23 20:05 Pulse Ox 92 02/06/23 20:05 O2 Del Method Nasal Cannula 02/06/23 20:05 O2 Flow Rate 4 02/06/23 20:05 Weight last 48 hrs Weight 70.307 kg Physical Exam Narrative: General exam is a white male, in apparent pain, pointing to his back. He is on 4 L of oxygen. HEENT: Atraumatic and normocephalic. Oropharynx clear Neck is supple no lymphadenopathy thyromegaly Cardiovascular regular rate and rhythm, no murmur Lungs diminished breath sounds bilaterally. Occasional wheeze Abdomen is soft. Tenderness is noted over hematoma noted right ventral area approximately 8 cm in length and 4 cm in width. exams deferred Extremities no sinus clubbing or edema, no evidence of decreased sensation Back demonstrates some tenderness in the upper lumbar area. No bruising is noted Skin see findings above Neuro no obvious focal deficits Data 02/06/23 19:25 02/06/23 19:25 Other Labs: Dimer is greater than 20 ABG demonstrates a pH 7.4, PCO2 of 41, PO2 of 60 LFTs normal Troponin 24 Albumin and calcium are normal Chest x-ray which I reviewed demonstrated irregular border right lung/upper lobe. No definite infiltrate. CT of chest demonstrated no pulmonary embolism, masslike thickening right tracheobronchial angle concerning for neoplastic process, consider follow-up as well as left hemidiaphragm atelectasis versus infiltrate Venous duplex negative Abdominal pelvis CT is now back which demonstrates hematoma correlating with physical exam ventral right side, 4.1 cm infrarenal abdominal aortic aneurysm, acute L1 compression fracture Thoracic CT demonstrates some mild loss of height at T2 and T3 Lumbar CT demonstrates acute L1 compression fracture causing moderate stenosis of the spinal canal A&P Assessment and plan (1) Hypoxia: I am concerned that the etiology of this may be twofold. Certainly his pain, may be impairing his breathing somewhat. I am also concerned with vomiting and potential aspiration pneumonitis. Will place him on Zosyn for this. Sputum culture. Neb treatments every 6 hours Budesonide twice daily Wean oxygen as tolerated (2) Fall: Denies loss of consciousness Mechanical fall (3) Back pain: Patient has evidence of L1 acute compression fracture Pain control with narcotics, muscle relaxants, Toradol as needed Therapy consultation May require orthopedic spine surgery consult. Land Development Project Manager is available tomorrow and this weekend. Bladder scan to check for any urinary retention Coalce BID as will be on narcotics (4) Mass of right lung: Will require further outpatient work-up to be determined. I discussed this in detail with family and patient He does have a history of tobacco use. Plan Coronary artery disease. Hold Plavix on admission, reassessing whether vertebroplasty may be needed soon History of rheumatoid arthritis. Hold immunosuppressant currently. Increase prednisone to 5 mg twice daily, stress dose Hypertension, continue home medications Hyperlipidemia continue home medications Multiple other medical problems as outlined in past medical history Full code SCDs for DVT prophylaxis. He has significant hematoma on his abdomen and this is a contraindication for anticoagulation currently. Reevaluate daily. Attestations Medical Necessity Statement*: Will require greater than 2 midnight stay for evaluation and treatment of pneumonia requiring oxygen, severe back pain and acute compression fracture Diagnoses Hypoxia R09.02 Fall W19.XXXA Back pain M54.9 Mass of right lung R91.8 Time Spent (min) 67
[2023-02-06] MEDS: HYDROmorphone 1 mg/mL INJ 1 mL IVP (23:43)
[2023-02-07] VITALS (13 sets, daily range): BP systolic 105–149; BP diastolic 61–86; PULSE 75–95; RESP 14–20; TEMP 36.4–36.9; O2SAT 90–93
[2023-02-07] MEDS: sodium chloride 0.9% 1,000 ML 75 ML IV (02:22)
[2023-02-07] MEDS: piperacillin-tazobactam 3.375 GM in sodium chloride 0.9% (plus) 50 ML IV ×3 (02:22→17:50)
[2023-02-07] MEDS: morphine 4 mg/mL SDV 1 mL 2 MG IVP ×2 (04:18→10:08)
--- NOTE | 2023-02-07 06:32 | PM.CONSULT ---
Providers/Reason For Consult Consulting Physician/Specialty*: hospitalist Reason for Consult*: L1 compression fracture Attending Physician: Sandeep Moss MD Primary Care Provider: Jovany Moncada DO History of Present Illness History of Present Illness Fco Quinones is a 77 year old male who fell off a ladder approximately 4 days ago. Did not have immediate pain however pain has been progressively getting worse over the past couple days. Patient is currently laying in bed was sleeping I woke him up to examine him. Patient does not complain of any weakness numbness or tingling. Review of Systems General: Reports: 10 or more systems reviewed and unremarkable except in HPI and below Card: Denies: chest pain Resp: Reports: dyspnea; Denies: productive cough or non-productive cough GI: Reports: vomiting; Denies: abdominal pain, nausea, hematochezia or melena Medications/Allergies Home Medications Medication Instructions Recorded Confirmed Last Taken Type amlodipine 5 mg tablet 5 mg PO DAILY 11/03/19 08/29/21 11/04/19 06:00 History calcium carbonate 600 mg calcium 600 mg PO DAILY 11/03/19 08/29/21 11/03/19 18:00 History (1,500 mg) tablet clopidogrel 75 mg tablet 75 mg PO DAILY 11/03/19 08/29/21 11/02/19 History folic acid 800 mcg tablet 0.8 mg PO DAILY 11/03/19 08/29/21 11/03/19 06:00 History hydrocodone 5 mg-acetaminophen 325 1 tab PO Q6H PRN Pain 11/03/19 08/29/21 11/02/19 History mg tablet lisinopril 5 mg tablet 5 mg PO DAILY 11/03/19 08/29/21 11/04/19 06:00 History loperamide 2 mg capsule 2 mg PO DAILY PRN Diarrhea 11/03/19 08/29/21 11/03/19 06:00 History magnesium hydroxide 400 mg/5 mL 400 mg PO DAILY PRN Diarrhea 11/03/19 08/29/21 11/03/19 18:00 History oral suspension (Milk of Magnesia) methotrexate sodium 2.5 mg tablet 2.5 mg PO DAILY 11/03/19 08/29/21 11/03/19 18:00 History multivitamin 1 tab PO DAILY 11/03/19 08/29/21 11/03/19 12:00 History omega 2-nqy-oxh-fish oil 120 1 cap PO DAILY 11/03/19 08/29/21 11/03/19 06:00 History mg-180 mg-500 mg capsule (Fish Oil) polyethylene glycol 3350 17 gram 17 g PO DAILY 11/03/19 08/29/21 Unknown History oral powder packet (Miralax) prednisone 5 mg tablet 5 mg PO DAILY 11/03/19 08/29/21 11/03/19 18:00 History rosuvastatin 20 mg tablet (Crestor) 20 mg PO DAILY 11/03/19 08/29/21 11/03/19 18:00 History simethicone 80 mg chewable tablet 80 mg PO DAILY 11/03/19 08/29/21 Unknown History hydrocodone 5 mg-acetaminophen 325 1 - 2 tab PO Q5H PRN pain #30 tabs 11/04/19 08/29/21 Unknown Rx mg tablet Allergies Allergy/AdvReac Type Severity Reaction Status Date / Time No Known Allergies Allergy Verified 02/06/23 18:52 Current Medications Generic Name Dose Route Start Last Admin Trade Name Freq PRN Reason Stop Dose Admin Sodium Chloride 1,000 mls @ 75 mls/hr 02/07/23 01:41 02/07/23 02:22 Sodium Chloride 0.9% IV 75 mls/hr .[id number] RAHAT Administration Piperacillin Sod/Tazobactam 50 mls @ 12.5 mls/hr 02/07/23 02:30 02/07/23 02:22 Sod 3.375 gm/ Sodium Chloride IV 12.5 mls/hr Q8H RAHAT Administration Morphine Sulfate 2 mg 02/07/23 01:41 02/07/23 04:18 Morphine 4 Mg/Ml Sdv 1 Ml IVP 2 mg Q4H PRN Administration SEVERE PAIN PFSH Acute PFSH: Medical History (Updated 02/07/23 @ 00:23 by Dylon Cardenas MD) History of BPH Hx of coronary artery disease Hx of hypercholesterolemia Hx of primary hypertension Hx of rheumatoid arthritis Surgical History Hx of angioplasty Hx of bilateral cataract extraction Hx of hand surgery Hx of inguinal hernia repair Family History Other Diabetes Social History (Updated 02/07/23 @ 00:06 by Sandeep Moss MD) Smoking and tobacco status: former smoker Alcohol intake: former Vitals/I&O/Wt Last Vital Signs Temp 98.5 F 02/07/23 03:48 Pulse 75 02/07/23 05:52 Resp 18 02/07/23 04:18 BP 149/78 02/07/23 03:48 Pulse Ox 90 02/07/23 03:48 O2 Del Method Nasal Cannula 02/07/23 03:48 O2 Flow Rate 5 02/07/23 00:51 02/06/23 02/06/23 02/07/23 14:59 22:59 06:59 Output Total 1000 / 1000 Balance -1000 / -1000 Weight last 48 hrs Weight 155 lb Physical Exam Narrative: Patient has tenderness to palpation of his spine over the fractured area. Difficulty with moving in bed. CONSTITUTIONAL: The patient is a normal appearing [] in no apparent distress. GENERAL: Patient in no acute distress. CARDIAC: Regular rate and rhythm. CHEST: Normal inspiratory effort, normal respiratory rate. ABDOMEN: Soft and nontender. SKIN: Clear, warm and intact. NEURO?PSYCH: The patient is alert and oriented to person, place and time. Sensorv /SILT Motor StrengthShoulder abduction C5 5/5Wrist extension C6 5/5Elbow extension C7 5/5Hand Forest Products Teacher C8 5/5Finger abduction T15/5 Radial/ Ulnar/ Median n intact LowerSensory (SILT)Motor StrengthHin flexion L2/3Ant/inner thigh 5/5Hip adduction L2/3 5/5Knee extension L4 Lat thigh, 5/5Toe dorsiflexion L5 5/5Ankle dorsiflexion L5/ [id number] flexion S1 5/5 DTRBleeps 2+Triceps 2+Brachioradialis 2+Patellar 2+Achilles 2+ Urinary Catheter Management: Francois: Cath Placed During This Visit: yes Urinary Catheter Date of Insertion: 02/07/23 Urinary Catheter Time of Insertion: 02:33 Data 02/06/23 19:25 02/06/23 19:25 A&P Assessment and plan (1) Compression fracture: Patient has a L1 compression fracture. At this point I would treat in a TLSO brace. Once you have to get up in the TLSO brace and would like to get upright x-rays. He is a potential candidate for a kyphoplasty however if he does improve with the TLSO this would be unnecessary. Patient is on Plavix so would have to hold Plavix for 5 days if he is going to proceed with a kyphoplasty. I would like to see how he does with the TLSO brace and getting up. If he is unable to get up due to the pain then we might have to hold Plavix and then proceed with kyphoplasty in 5 days. We will check again on him tomorrow to see how he is doing. Coding Level of Care Code Acute Code for Chg Fwd Diagnoses Compression fracture
--- NOTE | 2023-02-07 07:36 | PC.PHAR ---
pt sts he is not sure of the names of most of his scripts- pt sts if its filled hes taking it- medications verified using external med list last filled and home med list
[2023-02-07] MEDS: ondansetron 2 mg/ML SDV 2 mL 4 MG IVP (08:52)
[2023-02-07] MEDS: lisinopril 5 mg Tablet PO (09:03)
[2023-02-07] MEDS: tamsulosin 0.4 mg Capsule PO ×2 (09:04→09:05)
[2023-02-07] MEDS: docusate sodium 100 mg Capsule PO ×2 (09:04→17:50)
[2023-02-07] MEDS: amlodipine 5 mg Tablet PO (09:04)
[2023-02-07] MEDS: predniSONE 5 mg Tablet PO ×2 (09:04→17:50)
[2023-02-07] MEDS: polyethylene glycol 3350 Pkt 17 gm PO (09:04)
[2023-02-07 09:41] LABS: Add Urine Microscopic? YES; Bilirubin Urine Neg (Negative); Blood Urine Neg (Negative); Glucose Urine UA Norm (Normal); Ketones Urine Negative (Negative); Leukocyte Esterase Urine Negative (Negative); Nitrate Urine Negative (Negative); Protein Urine Trace (Negative); Urine Appearance Clear (CLEAR); Urine Color Yellow (Yellow); Urobilinogen Urine Norm (Negative); pH Urine 7 (5-7)
[2023-02-07 09:42] LABS: Bacteria Urine TRACE /hpf; RBC Urine 0-4 /hpf (0-2); Squamous Epithelial Cell Urine RARE /hpf (0-5); WBC Urine 0-4 /hpf (0-5)
[2023-02-07 09:43] LABS: Add Urine Culture? No; Hyaline Casts Urine RARE /lpf
--- NOTE | 2023-02-07 14:26 | PM.PN ---
Subjective Subjective: Patient was seen this morning, he is currently on 5 L, does report shortness of breath, his pain is under control, no headache, no blurry vision, no nausea, no vomiting, no chest pain Vitals/I&O/Wt Last Vital Signs Temp 97.6 F 02/07/23 11:16 Pulse 93 02/07/23 11:16 Resp 16 02/07/23 11:16 BP 137/73 02/07/23 11:16 Pulse Ox 92 02/07/23 11:16 O2 Del Method Nasal Cannula 02/07/23 11:16 O2 Flow Rate 5 02/07/23 08:00 02/06/23 02/07/23 02/07/23 22:59 06:59 14:59 Intake Total 100 / 100 Output Total 1000 / 1000 Balance -1000 / -1000 100 / 100 Weight last 48 hrs Weight 70.307 kg Physical Exam Const: COMMON NORMALS: no acute distress and patient oriented x3 Resp: COMMON NORMALS: normal respiratory effort, No retractions, No use of accessory muscles and clear to auscultation bilaterally AUSCULTATION: clear to auscultation bilaterally Cardio: COMMON NORMALS: regular rate, regular rhythm, S1 normal heart sound present and S2 normal heart sound present RATE: regular rate RHYTHM: regular rhythm HEART SOUNDS: S1 normal heart sound present and S2 normal heart sound present GI: COMMON NORMALS: Normal to inspection, nondistended, normoactive bowel sounds present and non-tender Extremity: COMMON NORMALS: no pedal edema Neuro: COMMON NORMALS: patient oriented x3 Psych: COMMON NORMALS: mental status grossly normal Skin: NARRATIVE SKIN EXAM: Hematoma abdomen, Urinary Catheter Management: Francois: Cath Placed During This Visit: yes Reason for Continuing Indwelling Catheter: Acute Urinary Retention or Obstruction Urinary Catheter Date of Insertion: 02/07/23 Urinary Catheter Time of Insertion: 02:33 Data 02/06/23 19:25 02/06/23 19:25 A&P Assessment and plan (1) Hypoxia: -Aspiration pneumonitis, aspiration pneumonia from fall -Possible pulmonary contusion The other possibility is a pulmonary contusion, although no significant radiographic evidence, given his fall, plan is to continue Zosyn for this. Sputum culture. Neb treatments every 6 hours Budesonide twice daily Wean oxygen as tolerated (2) Fall: Denies loss of consciousness Mechanical fall (3) Back pain: Patient has evidence of L1 acute compression fracture Pain control with narcotics, muscle relaxants, Toradol as needed Therapy consultation May require orthopedic spine surgery consult. Medical management Bladder scan to check for any urinary retention Coalce BID as will be on narcotics (4) Mass of right lung: Spoke to Dr. Pham, will have him follow-up outpatient, (5) Compression fracture: Plan Coronary artery disease. No plans for vertebroplasty at this time, will resume Plavix tomorrow if hematoma has not significantly increased History of rheumatoid arthritis. Hold immunosuppressant currently. Increase prednisone to 5 mg twice daily, stress dose Hypertension, continue home medications Hyperlipidemia continue home medications Multiple other medical problems as outlined in past medical history Full code SCDs for DVT prophylaxis. He has significant hematoma on his abdomen and this is a contraindication for anticoagulation currently. Reevaluate daily. Attestations Medical Necessity Statement*: Patient requires hospitalization for hypoxia, mass of right lung, fall, pulmonary contusion, aspiration pneumonitis, L1 compression fracture Diagnoses Hypoxia R09.02 Fall W19.XXXA Back pain M54.9 Mass of right lung R91.8 Compression fracture
[2023-02-07 15:13] LABS: Troponin(5th) Baseline 21 ng/L (0-15)
--- NOTE | 2023-02-07 15:32 | ECG_ITS ---
[facility] Test Date: 2023-02-07 Pat Name: Fco Quinones Department: Room: 275 Gender: Male Evs Attendant: : 1945 Requested By: Cuba Richards Order Number: [id number] Joss MD: Darío Magdaleno M.D. Measurements Intervals [place] Rate: 99 P: 19 TX: 194 QRS: 8 QRSD: 106 T: 29 QT: 370 QTc: 476 Interpretive Statements SINUS RHYTHM No previous ECG available for comparison Electronically Signed On 02-07-2023 16:17:14 CDT by Darío Magdaleno M.D. [id number]
--- NOTE | 2023-02-07 16:33 | ECG_ITS ---
[facility] Test Date: 2023-02-07 Pat Name: Fco Quinones Department: Room: 275 Gender: Male Technical Document Writer: : 1945 Requested By: Cuba Richards Order Number: [id number] Joss MD: Darío Magdaleno M.D. Measurements Intervals [place] Rate: 92 P: 12 DC: 188 QRS: 12 QRSD: 105 T: 17 QT: 430 QTc: 533 Interpretive Statements SINUS RHYTHM ST ELEVATION, CONSIDER SEPTAL INJURY [MARKED ST ELEVATION W/O NORMALLY INFLECTED T-WAVE IN V1/V2] BRUGADA SYNDROME Compared to ECG 02/07/2023 15:32:42 ST (T wave) deviation now present Electronically Signed On 02-07-2023 22:46:11 CDT by Darío Magdaleno M.D. [id number]
--- NOTE | 2023-02-07 17:16 | ECG_ITS ---
[facility] Test Date: 2023-02-07 Pat Name: Fco Quinones Department: Room: 275 Gender: Male Head Pastry Chef: : 1945 Requested By: Cuba Richards Order Number: [id number] Joss MD: Darío Magdaleno M.D. Measurements Intervals [place] Rate: 96 P: 5 WI: 189 QRS: -8 QRSD: 102 T: 3 QT: 372 QTc: 472 Interpretive Statements SINUS RHYTHM INCOMPLETE RIGHT BUNDLE BRANCH BLOCK [90+ ms QRS DURATION, TERMINAL R IN V1/V2, 40+ ms S IN I/aVL/V4/V5/V6] INFERIOR MYOCARDIAL INFARCTION , PROBABLY OLD [40+ ms Q WAVE AND/OR ST/T ABNORMALITY IN II/aVF] ST ELEVATION, CONSIDER SEPTAL INJURY [MARKED ST ELEVATION W/O NORMALLY INFLECTED T-WAVE IN V1/V2] TYPE 3 BRUGADA PATTERN (NON-DIAGNOSTIC) [COVED/SADDLEBACK ST ELEVATION > 0.1mV IN 2 OF V1-3] ACUTE [place] Compared to ECG 02/07/2023 17:18:47 Incomplete right bundle-branch block now present Myocardial infarct finding now present ST (T wave) deviation still present Electronically Signed On 02-07-2023 22:43:38 CDT by Darío Magdaleno M.D. [id number]
--- NOTE | 2023-02-07 17:18 | ECG_ITS ---
[facility] Test Date: 2023-02-07 Pat Name: Fco Quinones Department: Room: 275 Gender: Male Manager Software Development: : 1945 Requested By: Cuba Richards Order Number: [id number] Joss MD: Darío Magdaleno M.D. Measurements Intervals [place] Rate: 88 P: 2 FL: 183 QRS: -11 QRSD: 108 T: -1 QT: 395 QTc: 480 Interpretive Statements SINUS RHYTHM ST ELEVATION, CONSIDER SEPTAL INJURY [MARKED ST ELEVATION W/O NORMALLY INFLECTED T-WAVE IN V1/V2] TYPE 3 BRUGADA PATTERN (NON-DIAGNOSTIC) [COVED/SADDLEBACK ST ELEVATION > 0.1mV IN 2 OF V1-3] ACUTE [place] Compared to ECG 02/07/2023 16:56:45 No significant changes Electronically Signed On 02-07-2023 22:45:17 CDT by Darío Magdaleno M.D. [id number]
[2023-02-07 17:34] LABS: Troponin 5 2HR 21.71 ng/L (0-15)
[2023-02-07 17:37] LABS: Troponin 5 2HR Delta 0.71 ABS# (0-10)
[2023-02-07 19:01] LABS: CKMB 6.4 ng/mL (0-10.4)
[2023-02-07 19:06] LABS: CKMB Relative Index 0.9 % (0.0-5.3)
[2023-02-07 19:09] LABS: Creatine Phosphokinase 699 U/L (39-308)
[2023-02-07] MEDS: atorvastatin 40 mg Tablet PO (21:05)
[2023-02-07 21:28] LABS: Troponin 5 6HR 24.59 ng/L (0-15); Troponin 5 6HR Delta 3.59 ng/L (0-12)
--- NOTE | 2023-02-07 22:00 | ECG_ITS ---
[facility] Test Date: 2023-02-07 Pat Name: Fco Quinones Department: Room: 275 Gender: Male Academic Services Professional: : 1945 Requested By: Cuba Richards Order Number: [id number] Joss MD: Darío Magdaleno M.D. Measurements Intervals [place] Rate: 91 P: 16 MO: 188 QRS: 16 QRSD: 113 T: 12 QT: 349 QTc: 431 Interpretive Statements SINUS RHYTHM INCOMPLETE RIGHT BUNDLE BRANCH BLOCK [90+ ms QRS DURATION, TERMINAL R IN V1/V2, 40+ ms S IN I/aVL/V4/V5/V6] ST ELEVATION, CONSIDER SEPTAL INJURY [MARKED ST ELEVATION W/O NORMALLY INFLECTED T-WAVE IN V1/V2] TYPE 3 BRUGADA PATTERN (NON-DIAGNOSTIC) [COVED/SADDLEBACK ST ELEVATION > 0.1mV IN 2 OF V1-3] ACUTE [place] Compared to ECG 02/07/2023 18:00:13 Myocardial infarct finding no longer present ST (T wave) deviation still present Electronically Signed On 02-07-2023 22:44:47 CDT by Darío Magdaleno M.D. [id number]
[2023-02-08] VITALS (13 sets, daily range): BP systolic 110–148; BP diastolic 50–78; PULSE 9–91; RESP 16–18; TEMP 36.4–37.1; O2SAT 85–94
[2023-02-08] MEDS: piperacillin-tazobactam 3.375 GM in sodium chloride 0.9% (plus) 50 ML IV ×3 (01:58→18:04)
[2023-02-08 04:08] LABS: ABG PCO2 42.8 mmHg (35-45); ABG PH Result 7.39 (7.35-7.45); Arterial Blood Gas Hematocrit 41.1 % (42-52); Base Excess ABG 0.3 mmol/L (-2.0-2.0); Blood Gas Sample Site Brachial, left; Blood Gas Sample Type Arterial; HCO3 ABG 25.6 mmol/L (22-26); Oxygen Device NC; PO2 ABG 54.1 mmHg (80.0-100.0)
[2023-02-08 05:41] LABS: Basophils % 0.1 %; Eosinophils # 0.1 10^3/uL (0.0-0.8); Eosinophils % 0.5 %; Hematocrit 40.5 % (42.0-52.0); Hemoglobin 13.4 g/dL (11.7-16.6); Lymphocytes # 0.9 10^3/uL (0.8-4.8); Lymphocytes % 6.8 %; Mean Corpuscular HGB Conc 33.1 g/dL (30.0-36.0); Mean Corpuscular Hemoglobin 31.6 pg (28.0-34.0); Mean Corpuscular Volume 95.5 fl (80-94); Monocytes # 1.3 10^3/uL (0.2-0.9); Monocytes % 9.3 %; Neutrophils # 11.19 10^3/uL (1.8-7.7); Neutrophils % 82.9 %; Nucleated Red Blood Cells % 0 %; Platelet Count 161 10^3/cmm (130-400); Red Blood Count 4.24 10^6/uL (4.1-5.3); Red Cell Distribution Width 14.3 % (12.1-15.1); White Blood Count 13.5 10^3/uL (4.0-10.0)
[2023-02-08 06:00] LABS: C Reactive Protein 189.5 mg/L (0.0-4.9)
--- NOTE | 2023-02-08 06:00 | USCV_ITS ---
Fco Quinones Age: 77 Gender: M : 1945 Exam Date: 02/08/2023 08:01 Ordering Phys: Cuba Richards MD Technologist: Kyler Gardner Exam Location: [facility] [place] Indication: Shortness of breath BP: 112 / 64 HR: 89 Rhythm: Sinus Technical Quality: Adequate MEASUREMENTS (Male / Female) Normal Values 2D ECHO LVOT Diameter 2.1 cm LV Ejection Fraction MOD 2C 66.5 % LV Ejection Fraction 2C AL 68.6 % LA Diameter 3.1 cm LA Width 3.3 cm LA Height 3.7 cm RA Width 3.4 cm RA Height 3.9 cm Aorta at Sinotubular Diameter 2.0 cm IVC Diameter 1.7 cm M-MODE Aortic Annulus Diameter 2.8 cm LA Ao Ratio MM 1.1 MV E Point Septal Separation 0.5 cm DOPPLER AV Peak Velocity 168.7 cm/s LVOT Peak Velocity 87.0 cm/s AV Area Cont Eq vti 1.7 cm squared AV Area Cont Eq pk 1.8 cm squared MV Peak Velocity 115.0 cm/s MV Area PHT 5.4 cm squared Mitral E to A Ratio 0.7 MV E' Velocity 35.0 cm/s Mitral E to MV E' Ratio 7.7 Mitral E to LV E' Lateral Ratio 5.4 Mitral E to LV E' Septal Ratio 13.7 TR Peak Velocity 154.6 cm/s TR Peak Gradient 9.6 mmHg TR Mean Velocity 113.8 cm/s TR Mean Gradient 5.8 mmHg TR Velocity Time Integral 37.9 cm Right Atrial Pressure 3.0 mmHg Pulmonary Artery Systolic Pressu 12.6 mmHg PV Peak Velocity 102.0 cm/s RV Acceleration Time 0.1 s RV Ejection Time 0.3 s RV AcT/ET 0.3 FINDINGS Left Ventricle Normal left ventricular size, systolic function and wall thickness, with no regional wall motion abnormalities. Left ventricular ejection fraction is estimated at 65-70 %. Grade I diastolic dysfunction (abnormal relaxation filling pattern), normal to mildly elevated filling pressures. Right Ventricle Normal right ventricular size and systolic function. RVSP could not be calculated due to incomplete tricuspid regurgitation velocity profile. Right Atrium Normal right atrial size. Left Atrium Normal left atrial size. Mitral Valve Mild mitral annular calcification. Thickened mitral valve. No mitral valve stenosis. Trace mitral valve regurgitation. Aortic Valve Thickened and calcified aortic valve. No aortic valve stenosis. No aortic valve regurgitation. Tricuspid Valve Structurally normal tricuspid valve. Trace tricuspid valve regurgitation. Pulmonic Valve Structurally normal pulmonic valve. No pulmonary valve stenosis. No significant pulmonary valve regurgitation. Pericardium No pericardial effusion. Aorta Normal size aortic root and proximal ascending aorta. IVC Normal IVC dimension with >50% respiratory change of the inferior vena cava. CONCLUSIONS 1. Normal left ventricular size, systolic function and wall thickness, with no regional wall motion abnormalities. Left ventricular ejection fraction is estimated at 65-70 %. Grade I diastolic dysfunction (abnormal relaxation filling pattern), normal to mildly elevated filling pressures. 2. No prior similar studies to compare. Janet Robledo MD (Electronically Signed) Final Date: 08 February 2023 12:00 S
[2023-02-08 06:11] LABS: NT Pro B Type Natriuretic Pept 638 pg/mL (0-450)
[2023-02-08 06:33] LABS: Anion Gap 14.9 (5-19); Blood Urea Nitrogen 20 mg/dL (8-23); Calcium 8.6 mg/dL (8.5-10.5); Carbon Dioxide 24 mmol/L (22-29); Chloride 101 mmol/L (98-107); Glucose 104 mg/dL (65-115); Osmolality Calculated 285 mOsm/kg (285-295); Potassium 3.9 mmol/L (3.5-5.1); Procalcitonin 0.38 ng/mL (0-0.5); Sodium 136 mmol/L (136-145)
[2023-02-08] MEDS: tamsulosin 0.4 mg Capsule PO (09:02)
[2023-02-08] MEDS: amlodipine 5 mg Tablet PO (09:02)
[2023-02-08] MEDS: polyethylene glycol 3350 Pkt 17 gm PO (09:02)
[2023-02-08] MEDS: predniSONE 5 mg Tablet PO ×2 (09:02→18:04)
[2023-02-08] MEDS: lisinopril 5 mg Tablet PO (09:03)
[2023-02-08] MEDS: docusate sodium 100 mg Capsule PO ×2 (09:03→18:04)
--- NOTE | 2023-02-08 10:56 | ECG_ITS ---
[facility] Test Date: 2023-02-08 Pat Name: Fco Quinones Department: Room: 275 Gender: Male [employer] Manager: : 1945 Requested By: Cuba Richards Order Number: [id number] Joss MD: Janet Robledo M.D. Measurements Intervals [place] Rate: 88 P: 4 DC: 188 QRS: 15 QRSD: 109 T: 13 QT: 361 QTc: 438 Interpretive Statements SINUS RHYTHM TYPE 3 BRUGADA PATTERN (NON-DIAGNOSTIC) [COVED/SADDLEBACK ST ELEVATION > 0.1mV IN 2 OF V1-3] Compared to ECG 02/07/2023 21:15:03 Incomplete right bundle-branch block no longer present ST (T wave) deviation still present Electronically Signed On 02-08-2023 12:05:53 CDT by Janet Robledo M.D. [id number]
[2023-02-08] MEDS: clopidogrel 75 mg Tablet PO (11:17)
[2023-02-08 12:28] LABS: Creatine Phosphokinase 693 U/L (39-308)
--- NOTE | 2023-02-08 12:34 | XRR_ITS ---
PROCEDURE INFORMATION: Exam: XR Chest Exam date and time: 02/08/2023 12:59 PM Age: 77 years old Clinical indication: Shortness of breath; Additional info: Providor request SOB TECHNIQUE: Imaging protocol: Radiologic exam of the chest. Views: 1 view. COMPARISON: CR (CHEST, ) 02/06/2023 7:12 PM FINDINGS: Lungs: No consolidation. Pleural spaces: Moderate volume left pleural effusion. No pneumothorax. Heart/Mediastinum: No cardiomegaly. Bones/joints: Visualized osseous structures are intact. XR/XR chest 1V portable [id number] IMPRESSION: Moderate volume left pleural effusion.
--- NOTE | 2023-02-08 16:00 | P.PN_ITS ---
Subjective Subjective: Patient was seen this morning, had extensive discussion and evaluation with him, he denies chest pain, no shortness of breath, no family history of sudden cardiac , he does tell me that he had an angiogram in 2007, and he tells me when he did an angiogram they were concerned about his heart but that no stent was required at the vessel made its own bypass, he denies any lightheadedness, no dizziness, he is ambulate without significant symptomatology, he denies passing out when he was working on his ladder, cardiac echocardiogram was ordered due to his Brugada type pattern on his EKG, echocardiogram showed after speaking with cardiology, no significant wall motion abnormalities, no sig nificant changes in his ejection fraction, no significant troponin trend, repeat EKG continues to have type III Brugada, he continues to require 6 L, repeat ABG ordered, he does have evidence of rhabdomyolysis, Vitals/I&O/Wt Last Vital Signs Temp 97.6 F 02/08/23 11:37 Pulse 91 02/08/23 11:37 Resp 16 02/08/23 11:37 BP 148/78 02/08/23 11:37 Pulse Ox 92 02/08/23 11:37 O2 Del Method Nasal Cannula 02/08/23 11:37 O2 Flow Rate 6 02/08/23 11:32 02/08/23 02/08/23 02/08/23 06:59 14:59 22:59 Intake Total 50 / 1200 530 / 530 Output Total 200 / 700 Balance -150 / 500 530 / 530 Weight last 48 hrs Weight 70.307 kg Physical Exam Const: COMMON NORMALS: no acute distress and patient oriented x3 Resp: COMMON NORMALS: normal respiratory effort, No retractions, No use of accessory muscles and clear to auscultation bilaterally AUSCULTATION: clear to auscultation bilaterally Cardio: COMMON NORMALS: regular rate, regular rhythm, S1 normal heart sound present and S2 normal heart sound present RATE: regular rate RHYTHM: regular rhythm HEART SOUNDS: S1 normal heart sound present and S2 normal heart sound present GI: COMMON NORMALS: Normal to inspection, nondistended, normoactive bowel sounds present and non-tender Extremity: COMMON NORMALS: no pedal edema Neuro: COMMON NORMALS: patient oriented x3 Psych: COMMON NORMALS: mental status grossly normal Urinary Catheter Management: Francois: Cath Placed During This Visit: yes, but has since been removed by the nurse Reason for Continuing Indwelling Catheter: Decision to DC Catheter Urinary Catheter Date of Insertion: 02/07/23 Urinary Catheter Time of Insertion: 02:33 Date Urinary Catheter Removed: 02/08/23 Time Urinary Catheter Discontinued: 10:31 Data 02/08/23 05:00 02/08/23 05:00 A&P Assessment and plan (1) Brugada syndrome: (2) Rhabdomyolysis: (3) Fall: (4) Compression fracture: (5) Mass of right lung: (6) Fall: (7) Mass of left lung: (8) Hypoxia: Plan (1) Hypoxia: -Aspiration pneumonitis, aspiration pneumonia from fall -Possible pulmonary contusion The other possibility is a pulmonary contusion, although no significant radiographic evidence, given his fall, plan is to continue Zosyn for this.? Sp utum culture. Neb treatments every 6 hours Budesonide twice daily Wean oxygen as tolerated (2) Fall: Denies loss of consciousness Mechanical fall (3) Back pain: Patient has evidence of L1 acute compression fracture Pain control with narcotics, muscle relaxants, Toradol as needed Therapy consultation May require orthopedic spine surgery consult.? Medical management Bladder scan to check for any urinary retention Coalce BID as will be on narcotics (4) Mass of right lung: Spoke to Dr. Pham, will have him follow-up outpatient, (5) Compression fracture: #6 Brugada syndrome -Type II -With ST-T wave changes in V2 -No chest pain complaints, no shortness of breath, no syncope, -He did have a cardiac cath in 2007, but he told me that no stent was required that the vessel bypassed the blockage -Cardiac echo CONCLUSIONS ?1. Normal left ventricular size, systolic function and wall ?thickness, with no regional wall motion abnormalities. Left ?ventricular ejection fraction is estimated at 65-70 %. Grade I ?diastolic dysfunction (abnormal relaxation filling pattern), ?normal to mildly elevated filling pressures. ?2. No prior similar studies to compare. -Rhabdomyolysis, monitor -Spoke to cardiology again today, as patient is asymptomatic will likely need to be discharged on event monitor Plan Coronary artery disease.? No plans for vertebroplasty at this time, resume Plavix today History of rheumatoid arthritis.? Hold immunosuppressant currently.? Increase prednisone to 5 mg twice daily, stress dose Hypertension, continue home medications Hyperlipidemia continue home medications Multiple other medical problems as outlined in past medical history Full code SCDs for DVT prophylaxis.? He has significant hematoma on his abdomen and this is a contraindication for anticoagulation currently.? Reevaluate daily. Patient was seen this morning, had extensive discussion and evaluation with him, he denies chest pain, no shortness of breath, no family history of sudden cardiac , he does tell me that he had an angiogram in 2007, and he tells me when he did an angiogram they were concerned about his heart but that no stent was required at the vessel made its own bypass, he denies any lightheadedness, no dizziness, he is ambulate without significant symptomatology, he denies passing out when he was working on his ladder, cardiac echocardiogram was ordered due to his Brugada type pattern on his EKG, echocardiogram showed after speaking with cardiology, no significant wall motion abnormalities, no significant changes in his ejection fraction, no significant troponin trend, repeat EKG continues to have type III Brugada, he continues to require 6 L, repeat ABG ordered, he does have evidence of rhabdomyolysis, Attestations Medical Necessity Statement*: Patient requires hospitalization due to hypoxia, Brugada syndrome, rhabdomyolysis Diagnoses Brugada syndrome I49.8 Rhabdomyolysis M62.82 Fall W19.XXXA Compression fracture Mass of right lung R91.8 Mass of left lung R91.8 Hypoxia R09.02
--- NOTE | 2023-02-08 16:14 | USR_ITS ---
PROCEDURE INFORMATION: Exam: US Chest, Pleural Space Exam date and time: 02/08/2023 5:35 PM Age: 77 years old Clinical indication: Abnormal findings; Abnormal radiologic exam of lung or chest; Additional info: Left pleural fluid, hemmorhagic pleural effusion from fall? TECHNIQUE: Imaging protocol: Real time ultrasound of the chest was performed with image documentation. Exam focused on the pleural space. COMPARISON: CT angio chest PE protcl [id number] 02/06/2023 9:22 PM FINDINGS: Pleural spaces: No pleural fluid identified on ultrasound. US/US chest [id number] IMPRESSION: 1. No pleural fluid identified on ultrasound. 2. No pleural fluid identified on comparison CTA chest.
[2023-02-08] MEDS: atorvastatin 40 mg Tablet PO (21:15)
[2023-02-09] VITALS (10 sets, daily range): BP systolic 127–147; BP diastolic 71–78; PULSE 72–97; RESP 16–18; TEMP 36.5–36.9; O2SAT 91–95
[2023-02-09] MEDS: piperacillin-tazobactam 3.375 GM in sodium chloride 0.9% (plus) 50 ML IV ×3 (02:00→17:46)
[2023-02-09 04:16] LABS: ABG PCO2 40.4 mmHg (35-45); ABG PH Result 7.41 (7.35-7.45); Arterial Blood Gas Hematocrit 40.7 % (42-52); Base Excess ABG 0.7 mmol/L (-2.0-2.0); Blood Gas Operator Identificat ED; Blood Gas Sample Site Brachial, right; Blood Gas Sample Type Arterial; HCO3 ABG 25.4 mmol/L (22-26); Oxygen Device NC; PO2 ABG 61.9 mmHg (80.0-100.0)
--- NOTE | 2023-02-09 04:30 | PC.NURSE ---
patient went directly into toilet
[2023-02-09 05:14] LABS: Basophils % 0.2 %; Eosinophils # 0.1 10^3/uL (0.0-0.8); Eosinophils % 1.1 %; Hematocrit 38.6 % (42.0-52.0); Hemoglobin 13.1 g/dL (11.7-16.6); Lymphocytes % 8.4 %; Mean Corpuscular HGB Conc 33.9 g/dL (30.0-36.0); Mean Corpuscular Hemoglobin 31.8 pg (28.0-34.0); Mean Corpuscular Volume 93.7 fl (80-94); Monocytes # 1.3 10^3/uL (0.2-0.9); Monocytes % 10.9 %; Neutrophils # 9.27 10^3/uL (1.8-7.7); Nucleated Red Blood Cells % 0 %; Platelet Count 154 10^3/cmm (130-400); Red Blood Count 4.12 10^6/uL (4.1-5.3); Red Cell Distribution Width 13.9 % (12.1-15.1); White Blood Count 11.7 10^3/uL (4.0-10.0)
[2023-02-09 05:31] LABS: C Reactive Protein 100.8 mg/L (0.0-4.9)
[2023-02-09 05:42] LABS: NT Pro B Type Natriuretic Pept 593 pg/mL (0-450); Procalcitonin 0.23 ng/mL (0-0.5)
[2023-02-09 05:53] LABS: Anion Gap 11.7 (5-19); Blood Urea Nitrogen 14 mg/dL (8-23); Calcium 8.5 mg/dL (8.5-10.5); Carbon Dioxide 26 mmol/L (22-29); Chloride 101 mmol/L (98-107); Glucose 106 mg/dL (65-115); Osmolality Calculated 281 mOsm/kg (285-295); Potassium 3.7 mmol/L (3.5-5.1); Sodium 135 mmol/L (136-145)
--- NOTE | 2023-02-09 07:00 | XRR_ITS ---
PROCEDURE INFORMATION: Exam: XR Chest Exam date and time: 02/09/2023 6:21 AM Age: 77 years old Clinical indication: Shortness of breath; Additional info: SOB TECHNIQUE: Imaging protocol: Radiologic exam of the chest. Views: 1 view. COMPARISON: 1. CR (CHEST, ) 02/08/2023 12:59 PM 2. CTA chest 02/06/2023 3. CTA chest 05/30/2010 FINDINGS: Lungs: Chronic elevation of the left hemidiaphragm, with subjacent atelectasis and/or scarring. These findings are better seen on comparison CTA chest 02/06/2023 and are not significantly changed from CTA chest 05/30/2010. Overall appearance of the lungs is not significantly changed from 02/06/2023. No pneumothorax. Pleural spaces: See Lungs finding. Heart/Mediastinum: Unremarkable. No cardiomegaly. Vasculature: Calcification of the carotid bulb. Bones/joints: Unremarkable. XR/XR chest 1V portable [id number] IMPRESSION: Stable appearance of the lungs with chronic elevation of the left hemidiaphragm and mild subjacent atelectasis and/or scarring. No focal consolidation. No significant pleural effusion.
[2023-02-09] MEDS: docusate sodium 100 mg Capsule PO ×2 (08:50→17:46)
[2023-02-09] MEDS: predniSONE 5 mg Tablet PO ×2 (08:50→17:46)
[2023-02-09] MEDS: tamsulosin 0.4 mg Capsule PO (08:50)
[2023-02-09] MEDS: clopidogrel 75 mg Tablet PO (08:50)
[2023-02-09] MEDS: lisinopril 5 mg Tablet PO (08:50)
[2023-02-09] MEDS: amlodipine 5 mg Tablet PO (08:50)
[2023-02-09] MEDS: polyethylene glycol 3350 Pkt 17 gm PO (08:50)
[2023-02-09] MEDS: FUROsemide 10 mg/mL SDV 2mL 20 MG IVP (10:56)
--- NOTE | 2023-02-09 14:58 | P.PN_ITS ---
Subjective Subjective: patient was seen this morning, he is on 3L, denies any chest pain, denies shortness of breath Vitals/I&O/Wt Last Vital Signs Temp 98.5 F 02/09/23 07:35 Pulse 85 02/09/23 08:00 Resp 18 02/09/23 07:35 BP 137/71 02/09/23 07:35 Pulse Ox 93 02/09/23 08:00 O2 Del Method High Flow Nasal Cannula 02/09/23 08:00 O2 Flow Rate 3 02/09/23 08:00 02/08/23 02/09/23 02/09/23 22:59 06:59 14:59 Intake Total 480 / 1010 100 / 1110 240 / 240 Output Total 275 / 275 Balance 205 / 735 100 / 835 240 / 240 Physical Exam Const: COMMON NORMALS: no acute distress and patient oriented x3 Resp: COMMON NORMALS: normal respiratory effort, No retractions, No use of accessory muscles and clear to auscultation bilaterally AUSCULTATION: clear to auscultation bilaterally Cardio: COMMON NORMALS: regular rate, regular rhythm, S1 normal heart sound present and S2 normal heart sound present RATE: regular rate RHYTHM: regular rhythm HEART SOUNDS: S1 normal heart sound present and S2 normal heart sound present GI: COMMON NORMALS: Normal to inspection, nondistended, normoactive bowel sounds present and non-tender Extremity: COMMON NORMALS: no pedal edema Neuro: COMMON NORMALS: patient oriented x3 Psych: COMMON NORMALS: mental status grossly normal Urinary Catheter Management: Francois: Cath Placed During This Visit: yes, but has since been removed by the nurse Reason for Continuing Indwelling Catheter: Decision to DC Catheter Urinary Catheter Date of Insertion: 02/07/23 Urinary Catheter Time of Insertion: 02:33 Date Urinary Catheter Removed: 02/08/23 Time Urinary Catheter Discontinued: 10:31 Data 02/09/23 04:57 02/09/23 04:57 A&P Assessment and plan (1) Brugada syndrome: (2) Rhabdomyolysis: (3) Fall: (4) Compression fracture: (5) Mass of right lung: (6) Fall: (7) Mass of left lung: (8) Hypoxia: Plan (1) Hypoxia: -Aspiration pneumonitis, aspiration pneumonia from fall -Possible pulmonary contusion The other possibility is a pulmonary contusion, although no significant radiographic evidence, given his fall, plan is to continue Zosyn for this.? S putum culture. Neb treatments every 6 hours Budesonide twice daily Wean oxygen as tolerated (2) Fall: Denies loss of consciousness Mechanical fall (3) Back pain: Patient has evidence of L1 acute compression fracture Pain control with narcotics, muscle relaxants, Toradol as needed Therapy consultation May require orthopedic spine surgery consult.? Medical management Bladder scan to check for any urinary retention Coalce BID as will be on narcotics (4) Mass of right lung: Spoke to Dr. Pham, will have him follow-up outpatient, (5) Compression fracture: #6 Brugada syndrome -Type II -With ST-T wave changes in V2 -No chest pain complaints, no shortness of breath, no syncope, -He did have a cardiac cath in 2007, but he told me that no stent was required that the vessel bypassed the blockage -Cardiac echo CONCLUSIONS ?1. Normal left ventricular size, systolic function and wall ?thickness, with no regional wall motion abnormalities. Left ?ventricular ejection fraction is estimated at 65-70 %. Grade I ?diastolic dysfunction (abnormal relaxation filling pattern), ?normal to mildly elevated filling pressures. ?2. No prior similar studies to compare. -Rhabdomyolysis, monitor -Spoke to cardiology again today, as patient is asymptomatic will likely need to be discharged on event monitor Plan Coronary artery disease.? No plans for vertebroplasty at this time, resume Plavix today History of rheumatoid arthritis.? Hold immunosuppressant currently.? Increase prednisone to 5 mg twice daily, stress dose Hypertension, continue home medications Hyperlipidemia continue home medications Multiple other medical problems as outlined in past medical history Full code SCDs for DVT prophylaxis.? He has significant hematoma on his abdomen and this is a contraindication for anticoagulation currently.? Reevaluate daily. plan coutinue iv abx, zosyn, will diureses as bnp is elevated for fluid overlaod Attestations Medical Necessity Statement*: patient requires hospitalization for fluid overload requiring diureses, aspiration pna requiring iv abx Coding Level of Care Code 67466 Moderate MDM includes number and complexity of problems actively addressed during encounter, amount and/or complexity of data reviewed/ordered and described risk of complication, morbidity or mortality of management as do cumented Diagnoses Brugada syndrome I49.8 Rhabdomyolysis M62.82 Fall W19.XXXA Compression fracture Mass of right lung R91.8 Mass of left lung R91.8 Hypoxia R09.02
[2023-02-09] MEDS: atorvastatin 40 mg Tablet PO (20:09)
[2023-02-10] MEDS: piperacillin-tazobactam 3.375 GM in sodium chloride 0.9% (plus) 50 ML IV ×2 (02:05→10:35)
[2023-02-10 03:57] VITALS: BP 146/74; PULSE 82; RESP 16; TEMP 36.7; O2SAT 95
[2023-02-10 05:42] LABS: Basophils % 0.3 %; Eosinophils # 0.2 10^3/uL (0.0-0.8); Eosinophils % 2.1 %; Hematocrit 41.1 % (42.0-52.0); Hemoglobin 13.6 g/dL (11.7-16.6); Lymphocytes # 1.3 10^3/uL (0.8-4.8); Lymphocytes % 12.3 %; Mean Corpuscular HGB Conc 33.1 g/dL (30.0-36.0); Mean Corpuscular Hemoglobin 31.1 pg (28.0-34.0); Mean Corpuscular Volume 93.8 fl (80-94); Mean Platelet Volume 11.1 fL (7.4-10.4); Monocytes # 1.5 10^3/uL (0.2-0.9); Monocytes % 14.5 %; Neutrophils # 7.17 10^3/uL (1.8-7.7); Neutrophils % 70.4 %; Nucleated Red Blood Cells % 0 %; Platelet Count 183 10^3/cmm (130-400); Red Blood Count 4.38 10^6/uL (4.1-5.3); Red Cell Distribution Width 13.8 % (12.1-15.1); White Blood Count 10.2 10^3/uL (4.0-10.0)
[2023-02-10 05:58] VITALS: PULSE 82
[2023-02-10 05:59] LABS: C Reactive Protein 50.1 mg/L (0.0-4.9)
[2023-02-10 06:07] LABS: NT Pro B Type Natriuretic Pept 407 pg/mL (0-450); Procalcitonin 0.15 ng/mL (0-0.5)
[2023-02-10 06:18] LABS: Anion Gap 13.3 (5-19); Blood Urea Nitrogen 15 mg/dL (8-23); Calcium 8.7 mg/dL (8.5-10.5); Carbon Dioxide 28 mmol/L (22-29); Chloride 99 mmol/L (98-107); Glucose 93 mg/dL (65-115); Osmolality Calculated 285 mOsm/kg (285-295); Potassium 3.3 mmol/L (3.5-5.1); Sodium 137 mmol/L (136-145)
[2023-02-10 07:11] VITALS: BP 149/75; PULSE 80; RESP 14; TEMP 36.6; O2SAT 96
[2023-02-10] MEDS: potassium chloride ER 20 mEq Tablet PO (08:50)
[2023-02-10] MEDS: lisinopril 5 mg Tablet PO (08:50)
[2023-02-10] MEDS: amlodipine 5 mg Tablet PO (08:50)
[2023-02-10] MEDS: clopidogrel 75 mg Tablet PO (08:50)
[2023-02-10] MEDS: predniSONE 5 mg Tablet PO (08:50)
[2023-02-10] MEDS: docusate sodium 100 mg Capsule PO (08:50)
[2023-02-10] MEDS: tamsulosin 0.4 mg Capsule PO (08:50)
[2023-02-10] MEDS: polyethylene glycol 3350 Pkt 17 gm PO (08:51)
[2023-02-10 11:24] VITALS: PULSE 87; O2SAT 92
[2023-02-10 11:44] VITALS: BP 116/75; PULSE 98; RESP 16; TEMP 36.7; O2SAT 95
--- NOTE | 2023-02-10 11:45 | PC.SOCIAL ---
Pg 2 IMM Explained to pt Pg 2 IMM. No questions voiced. Provided pt a copy. Initialed, dated, & timed a copy & placed in chart.
--- NOTE | 2023-02-10 12:20 | PM.DCS ---
Discharge Providers Date of Admission: 02/07/23 00:23 Date of Discharge: February 10, 2023 Attending Provider at Admission: Sandeep Moss MD Attending Provider at Discharge: Cuba Richards MD Primary Care Provider: PAUL Ortiz Diagnoses at Discharge Discharge Diagnosis (1) Brugada syndrome: Status: Acute (2) Rhabdomyolysis: Status: Acute (3) Fall: Status: Acute (4) Compression fracture: Status: Acute (5) Mass of right lung: Status: Acute (6) Mass of left lung: Status: Acute (7) Hypoxia: Status: Acute Reason for Visit Reason for Visit: resp distress Hospital Course Hospital Course Fco Quinones is a 77 year old male who presents to the emergency department complaining of low back pain.? I was initially called on him secondary to hypoxia, and elevated D-dimer.? Upon evaluating the patient, further historical elements came to light.? He reports he fell 4 days ago off a ladder.? He thinks he was on the second rung.? He did not have back pain initially, but in the last 24 hours has severe back pain, upper lumbar area, nonradiating.? He has not had incontinence.? He reports it hurts greatly, even when he tries to take a breath.? He reports he was short of breath when he came in, but he thinks it was due to the pain.? He has not been coughing up any sputum.? He has had a little bit of vomiting.? No diarrhea.? No blood in stool, black or tarry stool, blood in emesis.? No ill contacts.? He does take Plavix. After these further history items came to light, I discussed this with the ER doctor and a CT abdomen and pelvis along with CT lung thoracolumbar spine have been ordered. For his fall, found to have L1 acute compression fracture, orthopedic spine surgery was consulted, recommended medical management, back brace, pain control, follow-up with Dr. Padilla as outpatient, patient was advised to use oxycodone sparingly for pain For his hypoxia during his hospitalization likely some component of fluid overload, some component aspiration pneumonitis with aspiration pneumonia from his fall, no significant radiographic evidence of pulmonary contusion, overall clinically improved, was requiring up to 6 L, diuresed, received IV antibiotics, discharged on 1 L nasal cannula, discharged on Augmentin, follow-up with primary care provider as outpatient Patient was found to have a mass of right lung, follow-up with Dr. Pham as outpatient for consideration of biopsy versus PET scan, I had extensive discussion with patient about his right lung mass, he needs to follow-up with pulmonary morbidity and mortality discussed, he voiced understanding, all question answered, agreed to proceed For his Brugada syndrome Brugada syndrome -Type II-III -With ST-T wave changes in V2 -No chest pain complaints, no shortness of breath, no syncope, throughout his hospitalization -He did have a cardiac cath in 2007, but he told me that no stent was required that the vessel bypassed the blockage -Cardiac echo CONCLUSIONS ?1. Normal left ventricular size, systolic function and wall ?thickness, with no regional wall motion abnormalities. Left ?ventricular ejection fraction is estimated at 65-70 %. Grade I ?diastolic dysfunction (abnormal relaxation filling pattern), ?normal to mildly elevated filling pressures. ?2. No prior similar studies to compare.? -Rhabdomyolysis, monitor -Spoke to cardiology, reviewed his EKGs, reviewed case, as patient is asymptomatic, will have patient follow-up with cardiology as outpatient, discharged with event monitor -I had extensive discussion with patient about Brugada syndrome, associated morbidity and mortality associated sudden cardiac ,, if you were to have any chest pain or shortness of breath or lightheadedness to call 911, please follow with cardiology, wear event monitor as prescribed. He voiced understanding, all questions answered, agreed to proceed Mechanical fall, follow-up with primary care provider as outpatient, Physical Exam Const: COMMON NORMALS: no acute distress and patient oriented x3 Resp: COMMON NORMALS: normal respiratory effort, No retractions, No use of accessory muscles and clear to auscultation bilaterally AUSCULTATION: clear to auscultation bilaterally Cardio: COMMON NORMALS: regular rate, regular rhythm, S1 normal heart sound present and S2 normal heart sound present RATE: regular rate RHYTHM: regular rhythm HEART SOUNDS: S1 normal heart sound present and S2 normal heart sound present GI: COMMON NORMALS: Normal to inspection, nondistended, normoactive bowel sounds present and non-tender Extremity: COMMON NORMALS: no pedal edema Neuro: COMMON NORMALS: patient oriented x3 Psych: COMMON NORMALS: mental status grossly normal Urinary Catheter Management: Francois: Cath Placed During This Visit: yes, but has since been removed by the nurse Reason for Continuing Indwelling Catheter: Decision to DC Catheter Urinary Catheter Date of Insertion: 02/07/23 Urinary Catheter Time of Insertion: 02:33 Date Urinary Catheter Removed: 02/08/23 Time Urinary Catheter Discontinued: 10:31 Discharge Data Studies Completed and Pending Completed Studies During Hospitalization Category Date Time Status CT abdomen pelvis w con* [id number] Stat Cat Scan 02/06/23 22:[address] angio chest PE protcl [id number] Stat Cat Scan 02/06/23 20:34 Completed XR chest 1V portable [id number] Routine Exams 02/09/23 07:00 Completed XR chest 1V portable [id number] Stat Exams 02/06/23 19:04 Completed XR chest 1V portable [id number] Stat Exams 02/08/23 12:34 [place] [id number] Stat Ultrasound 02/06/23 22:17 Completed CV. echo complete* [id number] Routine Ultrasound 02/08/23 06:00 Completed [place] chest [id number] Routine Ultrasound 02/08/23 16:14 Completed Pending at discharge Category Date Time Status Alpha 1 Antitrypsin Routine Lab 02/10/23 08:34 Received Radiology Impressions Chest CTA 02/06/23 20:34 IMPRESSION: 1. Negative CT angiogram of the chest. No evidence of acute pulmonary embolism. 2. Interval development of focal masslike soft tissue thickening along the right tracheobronchial angle concerning for possible neoplastic process. CT PET scan recommended for further assessment. 3. Mild mediastinal lymphadenopathy partially calcified, stable from 2009 likely granulomatous in nature. A 4. Chronic elevation left hemidiaphragm with left lower lobe subsegmental atelectasis. 5. Additional nonemergent findings as above. Venous Duplex 02/06/23 22:17 IMPRESSION: No evidence of deep vein thrombosis. Abdomen/Pelvis CT 02/06/23 22:46 IMPRESSION: 1. Acute L1 central compression deformity with posterior bony retropulsion causing [id number] stenosis of the spinal canal. This can be further assessed with a MRI for follow-up. 2. Small soft tissue contusion injury right ventral abdominal wall. No acute intra-abdominal or intrapelvic injury identified on CT. 3. There is a 4.1 cm infrarenal abdominal aortic aneurysm present. COMMENTS: Consistent with the [employer]'s Incidental Findings Committee white paper (J Am Itz Radiol 2018): Any incidental renal lesion less than 1 cm or classified as too small to characterize, or any incidental cystic renal lesion characterized as simple-appearing, is likely benign. No follow-up imaging is recommended for these lesions per consensus recommendations based on imaging criteria. Lumbar Spine CT 02/06/23 22:46 IMPRESSION: Acute L1 central compression deformity with posterior bony retropulsion causing moderate stenosis of the spinal canal. This can be further assessed with a MRI for follow-up. Thoracic Spine CT 02/06/23 22:46 IMPRESSION: Mild superior endplate height loss is seen in T2 and T3 which is age indeterminate. Correlate with point tenderness. This can be better assessed with an MRI for follow-up. Chest Ultrasound 02/08/23 16:14 IMPRESSION: 1. No pleural fluid identified on ultrasound. 2. No pleural fluid identified on comparison CTA chest. Chest X-Ray 02/09/23 07:00 IMPRESSION: Stable appearance of the lungs with chronic elevation of the left hemidiaphragm and mild subjacent atelectasis and/or scarring. No focal consolidation. No significant pleural effusion. Laboratory Results WBC 10.2 10^3/uL (4.0-10.0) H 02/10/23 05:09 RBC 4.38 10^6/uL (4.1-5.3) 02/10/23 05:09 Hgb 13.6 g/dL (11.7-16.6) 02/10/23 05:09 Hct 41.1 % (42.0-52.0) L 02/10/23 05:09 MCV 93.8 fl (80-94) 02/10/23 05:09 MCH 31.1 pg (28.0-34.0) 02/10/23 05:09 MCHC 33.1 g/dL (30.0-36.0) 02/10/23 05:09 RDW 13.8 % (12.1-15.1) 02/10/23 05:09 Plt Count 183 10^3/cmm (130-400) 02/10/23 05:09 MPV 11.1 fL (7.4-10.4) H 02/10/23 05:09 Neut % (Auto) 70.4 % 02/10/23 05:09 Lymph % (Auto) 12.3 % 02/10/23 05:09 Wilkes % (Auto) 14.5 % 02/10/23 05:09 Eos % (Auto) 2.1 % 02/10/23 05:09 Baso % (Auto) 0.3 % 02/10/23 05:09 Neut # (Auto) 7.17 10^3/uL (1.8-7.7) 02/10/23 05:09 Lymph # (Auto) 1.3 10^3/uL (0.8-4.8) 02/10/23 05:09 Wilkes # (Auto) 1.5 10^3/uL (0.2-0.9) H 02/10/23 05:09 Eos # (Auto) 0.2 10^3/uL (0.0-0.8) 02/10/23 05:09 Baso # (Auto) 0.0 10^3/uL (0.0-0.1) 02/10/23 05:09 Nucleated RBC % (auto) 0 % 02/10/23 05:09 Nucleated RBCs # 0.0 /100WBC 02/10/23 05:09 D-Dimer >= 20.00 ug/mIFEU (0-0.59) H 02/06/23 19:25 Specimen Type Arterial 02/09/23 04:05 Sample Site Brachial, right 02/09/23 04:05 ABG pH 7.41 (7.35-7.45) 02/09/23 04:05 ABG pCO2 40.4 mmHg (35-45) 02/09/23 04:05 ABG pO2 61.9 mmHg (80.0-100.0) L 02/09/23 04:05 ABG HCO3 25.4 mmol/L (22-26) 02/09/23 04:05 ABG Base Excess 0.7 mmol/L (-2.0-2.0) 02/09/23 04:05 Broderick Test N/a 02/09/23 04:05 Hematocrit 40.7 % (42-52) L 02/09/23 04:05 Hgb O2 Saturation 91.0 % (95-100) L 02/06/23 19:25 Carboxyhemoglobin 1.6 %THgb (0.4-20.1) 02/06/23 19:25 Methemoglobin 0.4 % (0.4-1.5) 02/06/23 19:25 Total Hemoglobin 14.6 g/dL (14-18) 02/06/23 19:25 O2 Delivery Device Nc 02/09/23 04:05 O2 Liters/Min 5.0 % 02/09/23 04:05 FiO2 40.0 % 02/09/23 04:05 Target Protection Specialist ID Ed 02/09/23 04:05 Sodium 137 mmol/L (136-145) 02/10/23 05:09 Potassium 3.3 mmol/L (3.5-5.1) L 02/10/23 05:09 Chloride 99 mmol/L (98-107) 02/10/23 05:09 Carbon Dioxide 28 mmol/L (22-29) 02/10/23 05:09 Anion Gap 13.3 (5-19) 02/10/23 05:09 BUN 15 mg/dL (8-23) 02/10/23 05:09 Creatinine 0.8 mg/dL (0.7-1.2) 02/10/23 05:09 GFR Calculation Not Reportable 02/10/23 05:09 Glucose 93 mg/dL (65-115) 02/10/23 05:09 Calculated Osmolality 285 mOsm/kg (285-295) 02/10/23 05:09 Calcium 8.7 mg/dL (8.5-10.5) 02/10/23 05:09 Total Bilirubin 0.8 mg/dL (0.15-1.2) 02/06/23 19:25 AST 39 U/L (0-40) 02/06/23 19:25 ALT 25 U/L (0-41) 02/06/23 19:25 Alkaline Phosphatase 57 U/L (40-130) 02/06/23 19:25 Creatine Kinase 693 U/L (39-308) H* 02/08/23 05:00 CK-MB (CK-2) 6.4 ng/mL (0-10.4) 02/07/23 14:49 CK-MB (CK-2) Rel Index 0.9 % (0.0-5.3) 02/07/23 14:49 Troponin T Gen 5 ng/L 24 ng/L (0-15) H 02/06/23 19:25 Troponin T Baseline 21 ng/L (0-15) H 02/07/23 14:49 Troponin T 120 Minute 21.71 ng/L (0-15) H 02/07/23 16:47 Delta Troponin T 0.71 ABS# (0-10) 02/07/23 16:47 Troponin T Hi Sens 6Hr 24.59 ng/L (0-15) H 02/07/23 20:38 Troponin T Hi Sens 6Hr Delta 3.59 ng/L (0-12) 02/07/23 20:38 C-Reactive Protein 50.1 mg/L (0.0-4.9) H 02/10/23 05:09 NT-Pro-B Natriuret Pep 407 pg/mL (0-450) 02/10/23 05:09 Total Protein 6.1 g/dL (6.6-8.7) L 02/06/23 19:25 Albumin 4.1 g/dL (3.5-5.2) 02/06/23 19:25 Globulin 2.0 g/dL (1.3-4.6) 02/06/23 19:25 Procalcitonin 0.15 ng/mL (0-0.5) 02/10/23 05:09 Urine Color Yellow (Yellow) 02/07/23 06:00 Urine Appearance Clear (CLEAR) 02/07/23 06:00 Urine pH 7 (5-7) 02/07/23 06:00 Ur Specific [place] 1.010 (1.005-1.030) 02/07/23 06:00 Urine Protein Trace (Negative) 02/07/23 06:00 Urine Glucose (UA) Norm (Normal) 02/07/23 06:00 Urine Ketones Negative (Negative) 02/07/23 06:00 Urine Blood Neg (Negative) 02/07/23 06:00 Urine Nitrate Negative (Negative) 02/07/23 06:00 Urine Bilirubin Neg (Negative) 02/07/23 06:00 Urine Urobilinogen Norm mg/dL (Negative) 02/07/23 06:00 Ur Leukocyte Esterase Negative (Negative) 02/07/23 06:00 Urine RBC 0-4 /hpf (0-2) H 02/07/23 06:00 Urine WBC 0-4 /hpf (0-5) H 02/07/23 06:00 Ur Squamous Epith Cells Rare /hpf (0-5) 02/07/23 06:00 Amorphous Sediment Not Reportable 02/07/23 06:00 Urine Bacteria Trace /hpf (NONE) 02/07/23 06:00 Hyaline Casts Rare /lpf 02/07/23 06:00 Vitals Last Vital Signs Temp 98.0 F 02/10/23 11:44 Pulse 98 02/10/23 11:44 Resp 16 02/10/23 11:44 BP 116/75 02/10/23 11:44 Pulse Ox 95 02/10/23 11:44 O2 Del Method Nasal Cannula 02/10/23 11:44 O2 Flow Rate 3 02/10/23 11:24 Discharge Plan Discharge Patient Disposition: Home Health Service Condition: Stable Prescriptions: New oxycodone 5 mg Tablet 5 mg PO Q6H PRN (Reason: Severe Pain) 7 Days Qty: 28 0RF amoxicillin-pot clavulanate 875-125 mg tablet 1 tab PO BID 5 Days Qty: 10 0RF Continued multivitamin Tablet 1 tab PO DAILY loperamide 2 mg Capsule 2 mg PO DAILY PRN (Reason: Diarrhea) polyethylene glycol 3350 [Miralax] 17 gram Powder In Packet 17 g PO DAILY prednisone 5 mg Tablet 5 mg PO DAILY clopidogrel 75 mg tablet 75 mg PO DAILY amlodipine 5 mg tablet 5 mg PO DAILY calcium carbonate 600 mg calcium (1,500 mg) Tablet 600 mg PO DAILY magnesium hydroxide [Milk of Magnesia] 400 mg/5 mL Suspension 400 mg PO DAILY PRN (Reason: Diarrhea) methotrexate sodium 2.5 mg tablet 2.5 mg PO DAILY folic acid 800 mcg Tablet 0.8 mg PO DAILY simethicone 80 mg Tablet,Chewable 80 mg PO DAILY rosuvastatin [Crestor] 20 mg Tablet 20 mg PO DAILY Fish Oil 120-180-500 mg Capsule 1 cap PO DAILY lisinopril 5 mg tablet 5 mg PO DAILY tamsulosin 0.4 mg capsule 0.4 mg PO DAILY Discontinued hydrocodone-acetaminophen 5-325 mg Tablet 1 tab PO Q6H PRN (Reason: Pain) Hold Instructions: Resume on 11/09/19. After surgical pain prescription is gone. Discharge Orders: Discharge Order (Routine); Ordered 02/10/23 Ordered By: Cuba Richards Other Ambulatory Orders: MCT/Event Monitor 30 Days (Routine) Timeframe: 1 Day Facility: [facility] - Location: Radiology Ordered By: Cuba Richards DME: Oxygen (Order) Location: None Selected Ordered By: Cuba Richards Referrals: [facility] [place] [Outside] [facility] [place] Home Care ([facility]) [Outside] Reagan Padilla DO [Physician] - 2 weeks Jessica Barnett FNP [Primary Care Provider] - 02/18/23 10:50 am Ari Pham MD [Physician] - 1-3 days Janet Robledo MD [Physician] - 1 week Discharge Diet: Cardiac Discharge Activity: Resume usual activity Patient Instructions: Opioid Safety Activity Restrictions/Additional Instructions: - If you have any chest pain, or shortness of breath, or lightheadedness please call 911 -Please follow-up with cardiology -Please wear event monitor as prescribed -Please use pain medication sparingly for back pain -Follow-up with Dr. Padilla -Please follow-up with Dr. Pham for lung mass Discharge Attestations Time Spent in Discharge Care*: greater than 30 min Quality Metrics Clinical Quality Measures [ No reported AMI, CVA or VTE this stay] Coding Level of Care Code 37717 Total time (in minutes) for Discharge: 45 Diagnoses Brugada syndrome I49.8 Rhabdomyolysis M62.82 Fall W19.XXXA Compression fracture Mass of right lung R91.8 Mass of left lung R91.8 Hypoxia R09.02
[2023-02-10 13:52] VITALS: O2SAT 87; O2SAT 93
[2023-02-11 12:28] LABS: Alpha 1 Antitrypsin 205 mg/dL (83-199)
== END 2023-02-10 14:29 | disposition home health service (06) | DRG 178 ==
LOC: ER 22:21 → MEDSURG 02-07 01:55
PROVIDERS: Admitting Provider Internal Medicine; Emergency Provider Family Medicine; PCP Nurse Practitioner Family; Visit Provider Family Medicine
DX: J69.0 Pneumonitis due to inhalation of food and vomit (principal); M62.82 Rhabdomyolysis; S32.018A Other fracture of first lumbar vertebra, initial encounter for closed fracture; W11.XXXA Fall on and from ladder, initial encounter; R91.8 Other nonspecific abnormal finding of lung field; I49.8 Other specified cardiac arrhythmias; Z79.52 Long term (current) use of systemic steroids; Z79.02 Long term (current) use of antithrombotics/antiplatelets; M79.605 Pain in left leg; M79.604 Pain in right leg; I25.10 Atherosclerotic heart disease of native coronary artery without angina pectoris; Z98.61 Coronary angioplasty status; N40.0 Benign prostatic hyperplasia without lower urinary tract symptoms; I10 Essential (primary) hypertension; M06.9 Rheumatoid arthritis, unspecified; Z87.891 Personal history of nicotine dependence; E87.70 Fluid overload, unspecified
CPT/HCPCS: 36415; 36600; 51702; 71045; 71275; 74177; 76604; 80048; 80053; 81001; 82103; 82550; 82553; 82803; 82805; 83880; 84145; 84484; 85025; 85378; 86140; 93005; 93306; 93970; 94760; 96374; 96375; 97116; 97161; 97530; 97760; 99285; J1170; J1940; J2270; J2405; J2543; J7030; J7512; L0456; Q9967

== ENCOUNTER → 2023-02-11 12:09 | Outpatient (BNVA) | payer MEDICARE, MEDICAID, SELFPAY | PROVIDERS: PCP Nurse Practitioner Family; Referring Provider Family Medicine; Visit Provider Internal Medicine Pulmonary Disease | DX: R91.8 Other nonspecific abnormal finding of lung field (principal); Z83.49 Family history of other endocrine, nutritional and metabolic diseases; R06.02 Shortness of breath; Z87.891 Personal history of nicotine dependence; J98.6 Disorders of diaphragm | CPT/HCPCS: 99204 ==

== ENCOUNTER → 2023-02-20 14:59 | Outpatient (BNVA) | payer MEDICARE, MEDICAID, SELFPAY | PROVIDERS: PCP Nurse Practitioner Family; Visit Provider Orthopaedic Surgery | DX: W11.XXXD Fall on and from ladder, subsequent encounter (principal); S32.010D Wedge compression fracture of first lumbar vertebra, subsequent encounter for fracture with routine healing | CPT/HCPCS: 72100; 99213 ==

== ENCOUNTER 2023-03-01 05:37 | Outpatient (CLI) | payer MEDICARE, MEDICAID, SELFPAY ==
--- NOTE | 2023-03-01 08:30 | PETR_ITS ---
PROCEDURE INFORMATION: Exam: PET/CT Skull Base to Mid-thigh Exam date and time: 03/01/2023 9:16 AM Age: 77 years old Clinical indication: Abnormal findings; Abnormal finding of lung field; Additional info: Lung mass. Recent trauma. LABS AND CLINICAL REPORTS: Glucose: 86 mg/dl Treatment strategy for malignancy (PET staging): Initial Staging (PI) TECHNIQUE: Imaging protocol: Following at least four-hour fasting and following the injection of radiopharmaceutical, low dose CT images were obtained. Then, PET images were obtained. Attenuation corrected images were constructed using the CT scan. Fused images of PET and CT were reviewed. The standardized uptake values (SUV) reported below are maximum values within a region of interest, expressed in gm/ml. Exam includes orbital meatal line to mid-thigh. Radiopharmaceutical: 13.9 mCi F-18 FDG (Fluorodeoxyglucose), IV. Time of imaging post radiopharmaceutical administration: 1 hour Injection site: Not specified COMPARISON: CTA chest 02/06/2023, CT thoracic spine 02/06/2023, CT lumbar spine 02/06/2023 CT abdomen pelvis w con* [id number] 02/06/2023 11:25 PM, CTA chest 05/30/2010 FINDINGS: Limitations: Motion artifact. Brain: Visualized brain has normal physiologic uptake. Pharynx: No abnormal uptake. Larynx: No abnormal uptake. Lungs, pleura and trachea: Mild dependent ill-defined streaky density in the posteroinferior left lower lobe is noted likely representing atelectasis with mild uptake, SUV max 3.2. There is a right lower lobe calcified granuloma. Mild non radiotracer avid biapical pleural scarring is present. Previously noted soft tissue density at the right tracheobronchial angle is not currently identified. Heart: Normal physiologic uptake. Mediastinal space: No abnormal uptake. Liver: No abnormal uptake. Gallbladder and bile ducts: No abnormal uptake. Pancreas: No abnormal uptake. Spleen: No abnormal uptake. Adrenal glands: No abnormal uptake. Kidneys and ureters: Normal physiologic uptake. Non radiotracer avid rounded fluid density structures arise from the kidneys compatible with simple cysts measuring up to 6.2 x 4.9 cm. Unremarkable right kidney. Stomach and bowel: No abnormal uptake. There are scattered colonic diverticula. Vasculature: There are diffuse atherosclerotic changes with infrarenal abdominal aortic aneurysm measuring approximately 4.4 cm in diameter. Lymph nodes: There are small scattered mediastinal and bilateral hilar lymph nodes, some of which are calcified. Some of these lymph nodes demonstrate elevated uptake for example measuring approximately 1 cm adjacent to the left lateral aspect of the inferior aortic arch on CT series 3, image 47, SUV max 5.4 in the right hilar region measuring approximately 1 cm on series 3, image 53, SUV max 6.4 and in the left hilar region measuring approximately 1.1 x 0.7 cm on series 3, image 55, SUV max 6.6. Bones/joints: There is elevated uptake within a mild compression fracture involving the superior endplate of T3 which appears similar to the CT of 02/06/2023 with an SUV max 7.7. Focal uptake in the region of the spinous process of C5 is noted, SUV max 6.7 without a definite correlating fracture on the current CT images. An extensive compression fracture of the L1 vertebral body is similar to slightly more prominent than on the CT of 02/06/2023 and demonstrates elevated uptake, SUV max 6.6. There is evidence of an old healed ununited fracture of the inferior left scapular body. Soft tissues: No abnormal uptake in the visualized head, neck, chest, abdomen, pelvis, and extremities. METRICS: Mediastinal blood pool: SUV max 2.8 PET/PET skulltothigh SUBSEQ [id number] IMPRESSION: 1. A previously noted region of masslike density along the right tracheobronchial angle on the CTA chest of 02/06/2023 is no longer identified. 2. Small bilateral hilar and mediastinal lymph nodes are noted, several of which are partially calcified. Elevated uptake within these lymph nodes is present and while malignancy cannot be entirely excluded, other etiology such as atypical infectious involvement may account for this appearance. 3. Elevated uptake is noted within the T3 and L1 vertebral bodies compatible with posttraumatic acute to subacute fractures. The L1 vertebral body compression fracture may be more pronounced compared with 02/06/2023. 4. Elevated uptake in the region of the C5 spinous processes is noted. Assessment of this region is limited on the current CT images. This uptake may be inflammatory or related recent trauma. A malignant etiology is not favored. Correlation with CT of the cervical spine may be useful for further assessment. 5. Simple appearing renal cysts. 6. Infrarenal abdominal aortic aneurysm. 7. Additional nonurgent findings as detailed above.
== END 2023-03-01 05:38 | disposition home or self-care (01) ==
LOC: RAD 03-03 05:38
PROVIDERS: PCP Nurse Practitioner Family; Visit Provider Internal Medicine Pulmonary Disease
DX: R91.8 Other nonspecific abnormal finding of lung field (principal); R93.89 Abnormal findings on diagnostic imaging of other specified body structures; I89.8 Other specified noninfective disorders of lymphatic vessels and lymph nodes; N28.1 Cyst of kidney, acquired; I71.43 Infrarenal abdominal aortic aneurysm, without rupture
CPT/HCPCS: 78815; A9552

== ENCOUNTER 2023-03-11 06:47 | Outpatient (CLI) | payer MEDICARE, MEDICAID, SELFPAY | END 2023-03-11 06:48 | disposition home or self-care (01) | PROVIDERS: PCP Nurse Practitioner Family; Visit Provider Internal Medicine Pulmonary Disease | DX: R91.8 Other nonspecific abnormal finding of lung field; S32.010A Wedge compression fracture of first lumbar vertebra, initial encounter for closed fracture; X58.XXXA Exposure to other specified factors, initial encounter; R07.9 Chest pain, unspecified | CPT/HCPCS: 72100; 93005; 94010; 94618; 94729; 99204; 99213 ==

== ENCOUNTER 2023-03-22 08:30 | Emergency (ER) | payer MEDICARE, MEDICAID, SELFPAY ==
[2023-03-22 08:36] VITALS: BP 154/84; PULSE 89; RESP 18; TEMP 36.8; O2SAT 95; BMI 21.6
--- NOTE | 2023-03-22 08:58 | ED_ITS ---
HPI - General Adult General: Chief complaint: Airway/Esophagus Foreign Body Stated complaint: lodged in throat Time Seen by Provider: 03/22/23 08:31 Source: patient Mode of arrival: ambulatory History of Present Illness: 77-year-old male presents emergency room with complaints of failure so patient stuck in his throat. He ate a hamburger last night after eating ice and he had a globus sensation in his throat and he has continued he has been able to swallow water is not any difficulty breathing. No fever sweats or chills. No respiratory compromise on arrival in the emergency room. Onset (ago): hour(s) Relieving factors: none Exacerbating factors: none Associated symptoms: Deny chest pain, cough, diaphoresis, decreased appetite, dyspnea, fevers/chills, malaise, nausea, seizures, short of breath, vomiting or weakness Review of Systems Const: Denies: fever(s), chills, fatigue, malaise or diaphoresis ENMT: Denies: throat pain, odynophagia, hoarseness, swelling of lips/tongue, oral sores, ear or mastoid pain, nasal discharge or nasal congestion Card: Denies: chest pain Resp: Denies: dyspnea GI: Denies: abdominal pain, nausea or vomiting PFSH ED PFSH: Medical History History of BPH Hx of coronary artery disease Hx of hypercholesterolemia Hx of primary hypertension Hx of rheumatoid arthritis Surgical History Hx of angioplasty Hx of bilateral cataract extraction Hx of hand surgery Hx of inguinal hernia repair Family History Other Diabetes Social History Smoking and tobacco status: former smoker Alcohol intake: former Physical Exam Const: GENERAL APPEARANCE: cooperative and comfortable ORIENTATION/CONSCIOUSNESS: Yes awake, Yes oriented to person, Yes oriented to place and Yes oriented to time HENMT: COMMON NORMALS: normocephalic, atraumatic, hearing grossly normal bilaterally, EAC's normal, TM's normal bilaterally and Normal external nose present HEAD & SCALP: normocephalic and atraumatic NOSE: Normal external nose present EXTERNAL AUDITORY CANAL: EAC's normal TYMPANIC MEMBRANE: TM's normal bilaterally MOUTH: Normal oral and palatal mucosa present, lip normal and tongue normal THROAT: posterior oropharynx normal and tonsils normal Eye: COMMON NORMALS: Equal, round and reactive pupils present, EOMs intact bilaterally, conjunctivae normal and no scleral icterus CONJUNCTIVA: Yes conjunctivae normal PUPIL: Yes Equal, round and reactive pupils present Neck/C-Spine: COMMON NORMALS: full ROM, no lymphadenopathy, supple and Thyroid normal THYROID: Thyroid normal and asymmetrical Lymph: LYMPHATIC: no lymphadenopathy noted Resp: COMMON NORMALS: normal respiratory effort, No retractions, No use of accessory muscles and clear to auscultation bilaterally AUSCULTATION: clear to auscultation bilaterally Cardio: COMMON NORMALS: regular rate, regular rhythm and No murmurs present (Cardio) RATE: regular rate RHYTHM: regular rhythm GI: COMMON NORMALS: Soft to palpation and No hepatosplenomegaly present AUS CULTATION: Yes normoactive bowel sounds PALPATION: Yes Soft to palpation, No Tenderness to palpation present (GI), No Guarding due to palpation present (GI) and Yes No hepatosplenomegaly present Extremity: COMMON NORMALS: normal to inspection, capillary refill normal, no clubbing, cyanosis or edema, no calf tenderness and no pedal edema Neuro: SENSORIUM/ORIENTATION: Yes oriented to person, Yes oriented to place and Yes oriented to time Skin: COMMON NORMALS: no rashes or lesions noted GENERAL SKIN EXAM: no rashes or lesions noted Course Vital Signs: Vital signs: Vital Signs Temperature 98.2 F 03/22/23 08:36 Pulse Rate 89 03/22/23 08:36 Respiratory Rate 18 03/22/23 08:36 Blood Pressure 154/84 03/22/23 08:36 Pulse Oximetry 95 03/22/23 08:36 Oxygen Delivery Me thod Room Air 03/22/23 08:36 MDM - General Adult Medical Decision Making No stridor no respiratory compromise able to swallow liquids without difficulty soft tissue the neck unremarkable discharge home if persistent symptoms follow- up with primary care for referral to ENT if felt appropriate Medical Records I reviewed the patient's medical records. Lab Data I reviewed the patient's lab results. Radiology Impressions Soft Tissue Neck X-Ray 03/22/23 08:58 IMPRESSION: No acute pathology. All radiology interpretation(s) finalized by discharge Discharge Plan Discharge Patient Disposition: Home Clinical Impression: Globus sensation Condition: Stable Prescriptions: No Action Spiriva with HandiHaler 18 mcg capsule, w/inhalation device 1 cap inhalation DAILY Qty: 60 6RF Rx Instructions: puncture 1 cap using device; one dose = 2 inhalations multivitamin Tablet 1 tab PO DAILY loperamide 2 mg Capsule 2 mg PO DAILY PRN (Reason: Diarrhea) prednisone 5 mg Tablet 5 mg PO DAILY clopidogrel 75 mg tablet 75 mg PO DAILY amlodipine 5 mg tablet 5 mg PO DAILY calcium carbonate 600 mg calcium (1,500 mg) Tablet 600 mg PO DAILY magnesium hydroxide [Milk of Magnesia] 400 mg/5 mL Suspension 400 mg PO DAILY PRN (Reason: Diarrhea) methotrexate sodium 2.5 mg tablet 2.5 mg PO DAILY folic acid 800 mcg Tablet 0.8 mg PO DAILY rosuvastatin [Crestor] 20 mg Tablet 20 mg PO DAILY Fish Oil 120-180-500 mg Capsule 1 cap PO DAILY lisinopril 5 mg tablet 5 mg PO DAILY tamsulosin 0.4 mg capsule 0.4 mg PO DAILY Discharge Orders: Discharge ED (Routine); Ordered 03/22/23 Ordered By: Juan Boston Referrals: Jessica Barnett FNP [Primary Care Provider] - Discharge Diet: Full LIquid Discharge Activity: Increase activity as tolerated Patient Instructions: Opioid Safety, Pain Management Activity Restrictions/Additional Instructions: You were seen for complaints of the sensation of something stuck in her throat on exam and x-ray there is no evidence of heat obstruction in the throat itself. Sometimes after swallowing something very thick or large sensation of an object being there will persist for quite some time. If your symptoms persist follow- up with your primary care doctor they can refer you to ENT for further evaluation if it is felt appropriate. Coding Level of Care Code ED [facility] for [facility]air Ag
--- NOTE | 2023-03-22 08:58 | XRR_ITS ---
PROCEDURE INFORMATION: Exam: XR Soft Tissue Neck Exam date and time: 03/22/2023 9:13 AM Age: 77 years old Clinical indication: Dysphagia / difficulty swallowing; Additional info: Foriegn body sensation TECHNIQUE: Imaging protocol: Radiologic exam of the soft tissues of the neck. COMPARISON: PT PET [facility] SUBSEQ [id number] 03/01/2023 9:16 AM FINDINGS: Airway: Normal. No abnormal narrowing. Soft tissues: Normal. Normal epiglottis. Bones/joints: Mild scoliosis. Severe degenerative disc disease from the C3 level to the C7 level. Mild and moderate bilateral facet osteoarthritis at a few level. Otherwise, unremarkable bones. XR/XR soft tissue neck [id number] IMPRESSION: No acute pathology.
[2023-03-22 10:19] VITALS: PULSE 86; RESP 15; O2SAT 97
== END 2023-03-22 10:20 | disposition home or self-care (01) ==
PROVIDERS: Emergency Provider Family Medicine; PCP Nurse Practitioner Family
DX: F45.8 Other somatoform disorders (principal); Z79.02 Long term (current) use of antithrombotics/antiplatelets; Z87.891 Personal history of nicotine dependence; I25.10 Atherosclerotic heart disease of native coronary artery without angina pectoris; I10 Essential (primary) hypertension
CPT/HCPCS: 70360; 99283

== ENCOUNTER → 2023-04-22 08:34 | Outpatient (BNVA) | payer MEDICARE, MEDICAID, SELFPAY | PROVIDERS: PCP Nurse Practitioner Family; Visit Provider Orthopaedic Surgery | DX: S32.010D Wedge compression fracture of first lumbar vertebra, subsequent encounter for fracture with routine healing; X58.XXXD Exposure to other specified factors, subsequent encounter | CPT/HCPCS: 72100; 99213 ==

== ENCOUNTER → 2023-05-09 11:00 | Outpatient (BNVA) | payer MEDICARE, MEDICAID, SELFPAY | PROVIDERS: PCP Nurse Practitioner Family; Visit Provider Nurse Practitioner | DX: M19.011 Primary osteoarthritis, right shoulder; M19.012 Primary osteoarthritis, left shoulder | CPT/HCPCS: 20610; 73030; 99214; J1100; J2795; J3301 ==

== ENCOUNTER → 2023-05-26 07:25 | Outpatient (BNVA) | payer MEDICARE, MEDICAID, SELFPAY | PROVIDERS: PCP Nurse Practitioner Family; Visit Provider Internal Medicine Pulmonary Disease | DX: R91.8 Other nonspecific abnormal finding of lung field (principal); R06.02 Shortness of breath; Z87.891 Personal history of nicotine dependence; J98.6 Disorders of diaphragm; I49.8 Other specified cardiac arrhythmias | CPT/HCPCS: 99214 ==

== ENCOUNTER → 2023-08-05 13:02 | Outpatient (BNVA) | payer MEDICARE, MEDICAID, SELFPAY | PROVIDERS: PCP Nurse Practitioner Family; Referring Provider Nurse Practitioner Family; Visit Provider Dermatology | DX: L82.1 Other seborrheic keratosis (principal); L81.4 Other melanin hyperpigmentation; D48.5 Neoplasm of uncertain behavior of skin; L98.8 Other specified disorders of the skin and subcutaneous tissue; L57.8 Other skin changes due to chronic exposure to nonionizing radiation; L72.0 Epidermal cyst; L73.8 Other specified follicular disorders; L57.0 Actinic keratosis | CPT/HCPCS: 11102; 17000; 99203 ==

== ENCOUNTER → 2023-08-15 07:46 | Outpatient (BNVA) | payer MEDICARE, SELFPAY | PROVIDERS: PCP Nurse Practitioner Family; Visit Provider Nurse Practitioner | DX: M19.011 Primary osteoarthritis, right shoulder (principal); M19.012 Primary osteoarthritis, left shoulder; Z71.89 Other specified counseling | CPT/HCPCS: 20610; J1100; J2795; J3301 ==

== ENCOUNTER → 2023-08-19 07:49 | Outpatient (BNVA) | payer MEDICARE, SELFPAY | PROVIDERS: PCP Nurse Practitioner Family; Visit Provider Dermatology | DX: C44.319 Basal cell carcinoma of skin of other parts of face (principal) | CPT/HCPCS: 14041; 17311 ==

== ENCOUNTER → 2023-09-25 09:21 | Outpatient (BNVA) | payer MEDICARE, SELFPAY | PROVIDERS: PCP Nurse Practitioner Family; Visit Provider Internal Medicine Pulmonary Disease | DX: R91.8 Other nonspecific abnormal finding of lung field (principal); R06.02 Shortness of breath; Z87.891 Personal history of nicotine dependence; J98.6 Disorders of diaphragm | CPT/HCPCS: 99214 ==

== ENCOUNTER 2023-10-14 07:19 | Outpatient (CLI) | payer MEDICARE, SELFPAY ==
--- NOTE | 2023-10-14 08:00 | CT_ITS ---
WS: [id number] CT chest wo con [id number] HISTORY: f/u hilar lymphadenopathy TECHNIQUE: Axial imaging performed through the thorax. Coronal and sagittal reformats are submitted. All CT scans at [facility] use at least one of these dose optimization techniques: automated exposure control; mA and/or kV adjustment per patient size (includes targeted exams where dose is mat ched to clinical indication); or iterative reconstruction. CONTRAST: None DLP: 239.65 mGy.cm COMPARISON: 02/06/2023 Lungs and central airway: Chronic emphysema. Marked improved aeration of both lungs since the prior s tudy. There is continued scarring or atelectasis at the lingula. No pulmonary mass. Benign calcified granuloma RIGHT lung base. Pleura: Normal. No pleural effusion. Heart and pericardium: Mild cardiomegaly. Extensive coronary artery calcifications. Mediastinum and stefanie: Evaluation of the hilum is difficult without IV contrast. The configuration of the hilar structures appear similar as compared to the prior study. A few of the hilar lymph nodes an d the paratracheal lymph nodes appear actually smaller in size. Vessels: Moderate atherosclerosis aorta. Normal size pulmonary artery. Chest wall and lower neck: No soft tissue masses. Upper abdomen: Small hiatal hernia. No adrenal mass. Partially visualized large cyst from the upper p ole the LEFT kidney. Multiple cysts were identified on a prior CT of 02/06/2023. Osseous structures: T3 compression fracture involving the superior endplate has progressed since 02/06. There is an additional, age-indeterminate partially visualized compression fracture at T12 inv olving the superior endplate. IMPRESSION: 1. Hilar regions are difficult to evaluate without IV contrast. There is no obvious enlargement or p rogression of the indeterminate lymph node seen on 02/06/2023. Some of the lymph nodes appear smaller in size. 2. Chronic emphysema. 3. Improved aeration bilaterally with minimal residual atelectasis or scar at the lingula. 4. Cardiomegaly with coronary artery calcifications. 5. T3 compression fracture has progressed since 02/06/2023. Age-indeterminate T12 superior endplate f racture.
== END 2023-10-14 07:20 | disposition home or self-care (01) ==
LOC: RAD 07:20
PROVIDERS: PCP Nurse Practitioner Family; Visit Provider Internal Medicine Pulmonary Disease
DX: R59.0 Localized enlarged lymph nodes (principal); J43.9 Emphysema, unspecified; I51.7 Cardiomegaly; I25.10 Atherosclerotic heart disease of native coronary artery without angina pectoris
CPT/HCPCS: 71250

== ENCOUNTER → 2023-11-21 09:07 | Outpatient (BNVA) | payer MEDICARE, SELFPAY | PROVIDERS: PCP Nurse Practitioner Family; Visit Provider Specialist | DX: M19.011 Primary osteoarthritis, right shoulder (principal); M19.012 Primary osteoarthritis, left shoulder; Z71.89 Other specified counseling | CPT/HCPCS: 20610; J1100; J2795; J3301 ==

== ENCOUNTER → 2024-03-12 07:53 | Outpatient (BNVA) | payer MEDICARE, SELFPAY | PROVIDERS: PCP Nurse Practitioner Family; Visit Provider Specialist | DX: M19.011 Primary osteoarthritis, right shoulder (principal); M19.012 Primary osteoarthritis, left shoulder; Z71.89 Other specified counseling | CPT/HCPCS: 20610; J1100; J2795; J3301 ==

== ENCOUNTER → 2024-06-11 08:20 | Outpatient (BNVA) | payer MEDICARE, SELFPAY | PROVIDERS: PCP Nurse Practitioner Family; Visit Provider Specialist | DX: M19.011 Primary osteoarthritis, right shoulder (principal); M19.012 Primary osteoarthritis, left shoulder; Z71.89 Other specified counseling | CPT/HCPCS: 20610; J1100; J2795; J3301 ==

== ENCOUNTER → 2024-09-17 08:15 | Outpatient (BNVA) | payer MEDICARE, SELFPAY | PROVIDERS: PCP Nurse Practitioner Family; Visit Provider Specialist | DX: M19.011 Primary osteoarthritis, right shoulder (principal); M19.012 Primary osteoarthritis, left shoulder | CPT/HCPCS: 20610; J1100; J2795; J3301; J9999 ==

== ENCOUNTER 2024-10-09 19:01 | Emergency (ER) | payer MEDICARE, SELFPAY ==
[2024-10-09] VITALS (14 sets, daily range): BP systolic 122–161; BP diastolic 57–99; PULSE 88–110; RESP 16–25; TEMP 35.7; O2SAT 87–97; BMI 17.6
--- NOTE | 2024-10-09 19:07 | CTR_ITS ---
PROCEDURE INFORMATION: Exam: CTA Chest With Contrast CTA Abdomen and Pelvis With Contrast Exam date and time: 10/09/2024 7:38 PM Age: 79 years old Clinical indication: Injury or trauma; Blunt trauma (contusions or hematomas); Other: General abd region; Prior surgery; Surgery date: 6+ months; Surgery type: Inguinal hernia repair. Coronary angioplasty; EMS arrival for possible fall. Patient found laying on floor at home by family. Patient very lethargic. History of infrarenal aaa. Anticoagulated. C collar in place. Last known well time of 10/05/2024. ; Additional info: Fall injury TECHNIQUE: Imaging protocol: Computed tomographic angiography of the chest with contrast. Exam focused on the arteries. Computed tomographic angiography of the abdomen and pelvis with contrast. Exam focused on the arteries. 3D rendering (Not supervised by radiologist): MIP and/or 3D reconstructed images were created by the technologist. Radiation optimization: All CT scans at this facility use at least one of these dose optimization techniques: automated exposure control; mA and/or kV adjustment per patient size (includes targeted exams where dose is matched to clinical indication); or iterative reconstruction. Contrast material: OMNI 350; Contrast volume: 100 ml; Contrast route: INTRAVENOUS (IV); COMPARISON: PT PET skull to thigh SUBS [id number] 03/01/2023 9:16 AM RADIATION DOSE METRICS: Total DLP (mGy-cm): 1188.33 FINDINGS: VASCULATURE: Pulmonary arteries: Normal. No pulmonary emboli. Aorta: Pre contrast images demonstrate no obvious acute intramural aortic hematoma in the chest and upper abdomen however the precontrast abdominal images are not provided. Normal heart size with coronary calcification. There is a fusiform infrarenal abdominal aortic aneurysm measuring maximally 4.8 x 4.8 cm versus 4.2 x 4.1 cm on most recent PET-CT exam. The aneurysm lumen is partially thrombosed and the lumen size appears somewhat irregular at the posterior aspect measuring about 2.1 x 1.6 cm. There is also stranding and bulging at the posterior aneurysm lumen which has increased in size since most recent PET CT exam, series 7, image 159 the area of outpouching measured about 18 x [address] images, versus 25 x 12 mm, current CT series 7 image 159 on the current exam. The enhancing lumen is noted extending into the area of outpouching. Given interval increase in overall aneurysm size and this area of irregular outpouching, an unstable aneurysm or and impending rupture with or without a penetrating aortic ulcer, current sagittal series 17, image 71 may be present. No other areas of periaortic hemorrhage or dissection is identified. The ascending aorta is stable and measures 3.3 cm and descending aorta 2.6 cm. Celiac trunk and mesenteric arteries: No occlusion or significant stenosis. Renal arteries: No occlusion or significant stenosis. Right iliac arteries: Probable severe stenosis at the proximal bilateral common iliac arteries with diffuse irregularity remaining iliac segments bilaterally. A moderate-focal severe stenosis of the left external iliac artery is also probably present.. Left iliac arteries: See above. CHEST: Lungs: Minimal biapical pleuroparenchymal thickening/scarring. Mild pulmonary emphysematous changes in the upper lobes. No acute lung consolidation or ground-glass opacity. Minimal central/infrahilar bronchiectasis and minimal peribronchial thickening. Bibasilar linear atelectasis/scarring and dependent changes. No lung contusion. Pleural spaces: Unremarkable. No pneumothorax. No pleural effusion. Heart: See Aorta finding. ABDOMEN AND PELVIS: Liver: No mass. Gallbladder and biliary ducts: Unremarkable. No calcified stones. No ductal dilation. Pancreas: Unremarkable. No mass. No ductal dilation. Spleen: Unremarkable. No splenomegaly. Adrenal glands: Unremarkable. No mass. Kidneys and ureters: Lateral exophytic left simple renal cyst measuring about 7.5 cm versus 6.[address] exam. Medial lobulated cystic left renal mass measuring 4.5 cm with minimal change, probably containing a few thin septations and no obvious solid suspicious elements. Additional small simple renal cysts are seen bilaterally. There is also a hypodense left lower pole renal lesion measuring 9 mm which does not appear to be simple cyst and could represent small solid neoplasm versus hyperdense/hemorrhagic benign cyst, series 7, image 173. A few other tiny hypodense renal lesions are too small to characterize. Stomach and bowel: Low-moderate colonic stool burden. Colonic diverticulosis. No obvious acute bowel findings. Appendix: No evidence of appendicitis. Intraperitoneal space: Unremarkable. No free air. No significant fluid collection. Urinary bladder: Markedly distended urinary bladder. Urinary retention should be excluded clinically. Reproductive: [id number] prostate enlargement. Lymph nodes: Calcified nonenlarged mediastinal lymph nodes consistent with chronic granulomatous disease. No other enlarged mediastinal hilar lymph nodes otherwise. Bones/joints: Old healed left lateral inferior rib fractures. Chronic T3 superior endplate compression deformity. T12 superior mild endplate compression deformity which was not described on the most recent imaging exam and may be acute. No subluxation or retropulsed element. Severe L1 vertebral body compression deformity similar to report description on 04/22/2023 however images are not available for comparison and is presumed chronic. A small retropulsed element is noted. Stable chronic minimal L5-S1 spondylolisthesis and spondylolysis. Soft tissues: Unremarkable. CT/CT ang [facility] [id number] IMPRESSION: 1. Comparison chest CT 10/14/2023, PET-CT 03/01/[address] 02/06/2023. 2. Interval increase of fusiform infrarenal abdominal aneurysm with enlarging area of irregular posterior outpouching in the distal aspect with enhancing lumen projecting into it. Findings may represent an unstable aneurysm or impending aneurysm rupture, with or without a penetrating ulcer. No other areas of acute periaortic stranding/hemorrhage or dissection. Stable appearance of thoracic aorta. Other nonacute arterial findings as above. 3. New T12 mild superior endplate compression deformity, probably acute. Severe L1 compression deformity similar to prior report however images are not available for comparison is presumed chronic with a small retropulsed element. 4. Small indeterminate right lower pole renal lesion as described measuring about 9 mm. Large renal cysts are again noted as described above. 5. Coronary calcification. 6. No acute lung findings. Other nonacute lung findings as described. 7. Markedly distended urinary bladder. Urinary retention should be excluded clinically. Prostate enlargement is present. COMMENTS: Consistent with the [employer]'s Incidental Findings Committee white paper (J Am Itz Radiol 2018): Any incidental renal lesion less than 1 cm or classified as too small to characterize, or any incidental cystic renal lesion characterized as simple-appearing, is likely benign. No follow-up imaging is recommended for these lesions per consensus recommendations based on imaging criteria.
--- NOTE | 2024-10-09 19:07 | CTR_ITS ---
PROCEDURE INFORMATION: Exam: CT Cervical Spine Without Contrast Exam date and time: 10/09/2024 7:35 PM Age: 79 years old Clinical indication: Injury or trauma; Blunt trauma; EMS arrival for possible fall. Patient found laying on floor at home by family. Patient very lethargic. History of infrarenal aaa. Anticoagulated. C collar in place. Last known well time of 10/05/2024. TECHNIQUE: Imaging protocol: Computed tomography of the cervical spine without contrast. Radiation optimization: All CT scans at this facility use at least one of these dose optimization techniques: automated exposure control; mA and/or kV adjustment per patient size (includes targeted exams where dose is matched to clinical indication); or iterative reconstruction. COMPARISON: PT PET skull to thigh SUBS [id number] 03/01/2023 9:[address] chest wo con [id number] 10/14/2023 7:50 AM RADIATION DOSE METRICS: Total DLP (mGy-cm): 376.87 FINDINGS: Bones: The vertebral body stature is intact in the cervical spine. Stable chronic minimal compression of superior T1. Congenital fusion the right atlantooccipital joint. Disc space narrowing with degenerative endplate spurring at C5-C6 and C6-C7. No significant spinal canal stenosis. Hypertrophic degenerative facets with bilateral bony neural foraminal narrowing at C5-C6. Lungs: Mild emphysema with mild scarring in the lung apices. Soft tissues: Unremarkable. CT/CT cervical spin wo con* [id number] IMPRESSION: No acute findings.
--- NOTE | 2024-10-09 19:07 | CTR_ITS ---
PROCEDURE INFORMATION: Exam: CT Head Without Contrast Exam date and time: 10/09/2024 7:32 PM Age: 79 years old Clinical indication: Injury or trauma; Blunt trauma (contusions or hematomas); EMS arrival for possible fall. Patient found laying on floor at home by family. Patient very lethargic. History of infrarenal aaa. Anticoagulated. C collar in place. Last known well time of 10/05/2024. TECHNIQUE: Imaging protocol: Computed tomography of the head without contrast. Radiation optimization: All CT scans at this facility use at least one of these dose optimization techniques: automated exposure control; mA and/or kV adjustment per patient size (includes targeted exams where dose is matched to clinical indication); or iterative reconstruction. COMPARISON: PT PET skull to thigh SUBS [id number] 03/01/2023 9:16 AM RADIATION DOSE METRICS: Total DLP (mGy-cm): 1241.62 FINDINGS: Brain: Moderate diffuse cortical volume loss. Severe hypodensities in supratentorial periventricular and subcortical white matter, consistent with microangiopathy. No intracranial hemorrhage. Cerebral ventricles: No ventriculomegaly. Paranasal sinuses: Visualized sinuses are unremarkable. No fluid levels. Mastoid air cells: Visualized mastoid air cells are well aerated. Orbital cavities: Prior cataract surgery. Bones: Unremarkable. No acute fracture. Soft tissues: Unremarkable. Vasculature: No hyperdense artery. CT/CT head wo con* [id number] IMPRESSION: No acute intracranial abnormality.
--- NOTE | 2024-10-09 19:11 | W.ED.FALL ---
HPI - Fall General: Chief Complaint: Fall Stated Complaint: FALL Time Seen by Provider: 10/09/24 19:01 Source: family and EMS Mode of arrival: EMS Limitations: altered mental status History of Present Illness: 79-year-old male is here from home after being found down on the ground with altered mental status. History is mainly from EMS and family family states the last time they had seen her normal was on Friday that went home today and found him on the ground unsure if he fell and was altered. Patient here only responds to painful stimuli he has dried feces in his underwear no lacerations. Related Data Home Medications ?Medication ?Instructions ?Recorded ?Confirmed amlodipine 5 mg tablet 5 mg PO DAILY 11/03/19 09/17/24 calcium carbonate 600 mg PO DAILY 11/03/19 09/17/24 clopidogrel 75 mg tablet 75 mg PO DAILY 11/03/19 09/17/24 lisinopril 5 mg tablet 5 mg PO DAILY 11/03/19 09/17/24 loperamide 2 mg capsule 2 mg PO DAILY PRN Diarrhea 11/03/19 09/17/24 magnesium hydroxide 400 mg/5 mL 400 mg PO DAILY PRN Diarrhea 11/03/19 09/17/24 oral suspension (Milk of Magnesia) methotrexate sodium 2.5 mg tablet 2.5 mg PO DAILY 11/03/19 09/17/24 multivitamin 1 tab PO DAILY 11/03/19 09/17/24 omega 8-iph-fjb-fish oil 120 1 cap PO DAILY 11/03/19 09/17/24 mg-180 mg-500 mg capsule (Fish Oil) prednisone 5 mg tablet 5 mg PO DAILY 11/03/19 09/17/24 rosuvastatin 20 mg tablet (Crestor) 20 mg PO DAILY 11/03/19 09/17/24 tamsulosin 0.4 mg capsule 0.4 mg PO DAILY 02/07/23 09/17/24 Allergies Allergy/AdvReac Type Severity Reaction Status Date / Time No Known Allergies Allergy Verified 09/17/24 09:20 Review of Systems General: Reports: ROS unobtainable due to mental status PFS ED PFSH: Medical History Osteoarthritis of shoulders, bilateral Bilateral shoulder pain Hx of rheumatoid arthritis Hx of primary hypertension Hx of hypercholesterolemia History of BPH Hx of coronary artery disease Surgical History Hx of bilateral cataract extraction Hx of inguinal hernia repair Hx of hand surgery Hx of angioplasty Family History Other Diabetes Social History Smoking and tobacco/nicotine status: never used tobacco/nicotine Quit status (tobacco/nicotine): has quit using Year quit tobacco: 2003 Former quit date comment: 4 ppd X 45 years Alcohol intake: former Physical Exam Const: COMMON NORMALS: negative for patient oriented x3 GENERAL APPEARANCE: ill appearing HENMT: COMMON NORMALS: normocephalic and atraumatic HEAD & SCALP: normocephalic and atraumatic Eye: COMMON NORMALS: Equal, round and reactive pupils present and EOMs intact bilaterally PUPIL: Yes Equal, round and reactive pupils present Neck/C-Spine: OTHER: in c collar Chest: COMMONS NORMALS: normal inspection of the chest and normal palpation of entire chest wall Resp: COMMON NORMALS: normal respiratory effort, No retractions, No use of accessory muscles and clear to auscultation bilaterally AUSCULTATION: clear to auscultation bilaterally Cardio: COMMON NORMALS: regular rate, regular rhythm and No murmurs present (Cardio) RATE: regular rate RHYTHM: regular rhythm GI: COMMON NORMALS: Normal to inspection, nondistended, normoactive bowel sounds present, Soft to palpation, non-tender and no masses PALPATION: Yes Soft to palpation OTHER: Dried feces noticed on buttocks and underwear rectal exam showed brown stool that was Hemoccult negative Extremity: COMMON NORMALS: normal to inspection and full ROM Neuro: COMMON NORMALS: negative for patient oriented x3 Psych: COMMON NORMALS: negative for mental status grossly normal Skin: COMMON NORMALS: no rashes or lesions noted and no wounds GENERAL SKIN EXAM: no rashes or lesions noted Course Vital Signs: Vital signs: Vital Signs Temperature 96.3 F L 10/09/24 19:02 Pulse Rate 89 10/09/24 21:30 Respiratory Rate 20 H 10/09/24 21:30 Blood Pressure 154/69 10/09/24 21:30 Pulse Oximetry 96 10/09/24 21:30 Oxygen Delivery Me thod Room Air 10/09/24 21:11 MDM - Fall Medical Decision Making Patient presents with altered mental status and had a recent fall. On CT is found to have an abdominal aortic aneurysm concerning for pending rupture will transfer to [place] for high-level care I did talk to vascular surgery there and will transfer due to vascular capability. Will transfer ER to ER did attempt to transfer by air but they are not flying due to weather will transfer by ground Medical Records I reviewed the patient's medical records. Lab Data I reviewed the patient's lab results. 10/09/24 19:24 10/09/24 19:24 Radiology Impressions Cervical Spine CT 10/09/24 19:07 IMPRESSION: No acute findings. Chest/Abdomen/Pelvis CTA 10/09/24 19:07 IMPRESSION: 1. Comparison chest CT 10/14/2023, PET-CT 03/01/[address] 02/06/2023. 2. Interval increase of fusiform infrarenal abdominal aneurysm with enlarging area of irregular posterior outpouching in the distal aspect with enhancing lumen projecting into it. Findings may represent an unstable aneurysm or impending aneurysm rupture, with or without a penetrating ulcer. No other areas of acute periaortic stranding/hemorrhage or dissection. Stable appearance of thoracic aorta. Other nonacute arterial findings as above. 3. New T12 mild superior endplate compression deformity, probably acute. Severe L1 compression deformity similar to prior report however images are not available for comparison is presumed chronic with a small retropulsed element. 4. Small indeterminate right lower pole renal lesion as described measuring about 9 mm. Large renal cysts are again noted as described above. 5. Coronary calcification. 6. No acute lung findings. Other nonacute lung findings as described. 7. Markedly distended urinary bladder. Urinary retention should be excluded clinically. Prostate enlargement is present. COMMENTS: Consistent with the [employer] [employer]'s Incidental Findings Committee white paper (J Am [employer]z Radiol 2018): Any incidental renal lesion less than 1 cm or classified as too small to characterize, or any incidental cystic renal lesion characterized as simple-appearing, is likely benign. No follow-up imaging is recommended for these lesions per consensus recommendations based on imaging criteria. ADDENDUM: 10/09/242035 Addendum ADRIANNA Yañez was notified by phone at about 9:34 p.m. Eastern time. Consultation with vascular surgery or interventional radiology should be considered for the aortic findings. Head CT 10/09/24 19:07 IMPRESSION: No acute intracranial abnormality. Laboratory Results WBC 14.00 10^3/uL (3.29-11.43) H 10/09/24 19:24 RBC 6.03 10^6/uL (3.85-5.65) H 10/09/24 19:24 Hgb 19.10 g/dL (11.27-16.99) H 10/09/24 19:24 Hct 57.2 % (37-53) H 10/09/24 19:24 MCV 94.9 fl (82-101) 10/09/24 19: MCH 31.7 pg (27-33) 10/09/24 19: MCHC 33.4 g/dL (30-55) 10/09/24 19: RDW 14.6 % (12.1-15.1) 10/09/24 19: Plt Count 155 10^3/cmm (157-399) L 10/09/24 19: MPV 11.7 fL (7.4-10.4) H 10/09/24 19: Neut % (Auto) 79.9 % 10/09/24: Lymph % (Auto) 8.8 % 10/09/24 19: [place] % (Auto) 10.4 % 10/09/24 19: Eos % (Auto) 0.1 % 10/09/24: Baso % (Auto) 0.3 % 10/09/24: Neut # (Auto) 11.19 10^3/uL (1.8-7.7) H 10/09/24 19:24 Lymph # (Auto) 1.2 10^3/uL (0.8-4.8) 10/09/24: [place] # (Auto) 1.5 10^3/uL (0.2-0.9) H 10/09/24 19:24 Eos # (Auto) 0.0 10^3/uL (0.0-0.8) 10/09/24 19: Baso # (Auto) 0.0 10^3/uL (0.0-0.1) 10/09/24 19:24 Nucleated RBC % (auto) 0 % 10/09/24 19:24 Nucleated RBCs # 0.0 /100WBC 10/09/24 19:24 PT 13.70 SECONDS (12.1-14.9) 10/09/24 19:24 INR 0.98 (0.8-1.2) 10/09/24 19:24 Sodium 147 mmol/L (136-145) H 10/09/24 19:24 Potassium 3.9 mmol/L (3.5-5.1) 10/09/24 19:24 Chloride 105 mmol/L (98-107) 10/09/24 19:24 Carbon Dioxide 20 mmol/L (22-29) L 10/09/24 19:24 Anion Gap 25.9 (5-19) H 10/09/24 19:24 BUN 38 mg/dL (8-23) H 10/09/24 19:24 Creatinine 1.4 mg/dL (0.7-1.2) H 10/09/24 19:24 GFR Calculation Not Reportable 10/09/24 19:24 Glucose 127 mg/dL (65-115) H 10/09/24 19:24 Calculated Osmolality 315 mOsm/kg (285-295) H 10/09/24 19:24 Calcium 10.1 mg/dL (8.5-10.5) 10/09/24 19:24 Magnesium 2.5 mg/dL (1.7-2.3) H 10/09/24 19:24 Total Bilirubin 1.7 mg/dL (0.15-1.2) H 10/09/24 19:24 AST 35 U/L (0-40) 10/09/24 19:24 ALT 17 U/L (0-41) 10/09/24 19:24 Alkaline Phosphatase 99 U/L (40-130) 10/09/24 19:24 Creatine Kinase 420 U/L (39-308) H* 10/09/24 19:24 Total Protein 8.0 g/dL (6.6-8.7) 10/09/24 19:24 Albumin 4.3 g/dL (3.5-5.2) 10/09/24 19:24 Globulin 3.7 g/dL (1.3-4.6) 10/09/24 19:24 TSH 3.15 uIU/mL (0.27-4.20) 10/09/24 19:24 Urine Color Dark yellow (Yellow) A 10/09/24 20:07 Urine Appearance Clear (CLEAR) 10/09/24 20: Urine pH 5.5 (5-7) 10/09/24 20:07 Ur Specific [place] 1.023 (1.005-1.030) 10/09/24 20:07 Urine Protein 2+ (Negative) A 10/09/24 20:07 Urine Glucose (UA) Negative (Normal) 10/09/24 20:07 Urine Ketones 1+ (Negative) H 10/09/24 20:07 Urine Blood Negative (Negative) 10/09/24 20: Urine Nitrate Negative (Negative) 10/09/24 20: Urine Bilirubin 1+ (Negative) H 10/09/24 20:07 Urine Urobilinogen 1.0 mg/dL (Negative) 10/09/24 20:07 Ur Leukocyte Esterase Trace (Negative) A 10/09/24 20:07 Urine RBC 3-5 /hpf (0-2) 10/09/24 20:07 Urine WBC 0-5 /hpf (0-5) 10/09/24 20:07 Ur Squamous Epith Cells 0-5 /hpf (0-5) 10/09/24 20:07 Amorphous Sediment Not Reportable 10/09/24 20:07 Urine Bacteria None seen /hpf (NONE) 10/09/24 20:07 Hyaline Casts 11.97 /lpf 10/09/24 20:07 Urine Mucus 1+ /hpf 10/09/24 20:07 All radiology interpretation(s) finalized by discharge Critical Care Time Critical Care Time: Critical Care Time: Yes Total Critical Care Time: 45 Attestation: The high probability of a clinically significant, sudden or life threatening deterioration of the patient's vascular system(s) required my full and direct attention, intervention and personal management. The critical care time is as shown. This time is in addition to time spent performing any reported procedures but includes the following: [x] Data and vital sign review and interpretation [x] Patient assessment, examination and intervention [x] Documentation [x] Medication orders and management Discharge Plan Discharge Patient Disposition: Xfer Short-Term Hosp Clinical Impression: Altered mental status, Fall, Abdominal aortic aneurysm Condition: Stable Prescriptions: No Action betamethasone acet,sod phos [Celestone Soluspan] 6 mg/mL suspension 6 mg intra-articular ONCE Qty: 1 0RF triamcinolone acetonide [Kenalog] 40 mg/mL suspension 40 mg intra-articular ONCE Qty: 1 0RF lidocaine (PF) 10 mg/mL (1 %) solution 15 mg intra-articular ONCE Qty: 1.5 0RF ropivacaine (PF) 5 mg/mL (0.5 %) solution 7.5 mg intra-articular ONCE Qty: 1.5 0RF multivitamin Tablet 1 tab PO DAILY loperamide 2 mg Capsule 2 mg PO DAILY PRN (Reason: Diarrhea) prednisone 5 mg Tablet 5 mg PO DAILY clopidogrel 75 mg tablet 75 mg PO DAILY amlodipine 5 mg tablet 5 mg PO DAILY calcium carbonate 600 mg calcium (1,500 mg) Tablet 600 mg PO DAILY magnesium hydroxide [Milk of Magnesia] 400 mg/5 mL Suspension 400 mg PO DAILY PRN (Reason: Diarrhea) methotrexate sodium 2.5 mg tablet 2.5 mg PO DAILY rosuvastatin [Crestor] 20 mg Tablet 20 mg PO DAILY Fish Oil 120-180-500 mg Capsule 1 cap PO DAILY lisinopril 5 mg tablet 5 mg PO DAILY tamsulosin 0.4 mg capsule 0.4 mg PO DAILY Referrals: Jessica Barnett FNP [Primary Care Provider] - Print Language: Italian Coding Level of Care Code ED Hydropress Operator for Yair Ag
--- NOTE | 2024-10-09 19:19 | ECG_ITS ---
Binary Thumb Test Date: 2024-10-09 Pat Name: Fco Quinones Department: Room: Gender: Male Tax Auditor: : 1945 Requested By: Suhail Arcos Order Number: [id number] Joss MD: Khadra Feliciano M.D. Measurements Intervals [place] Rate: 113 P: -26 NM: 132 QRS: -26 QRSD: 88 T: 151 QT: 321 QTc: 440 Interpretive Statements SINUS TACHYCARDIA Possible inferior DC, Q waves with ST changes Compared to ECG 03/11/2023 10:23:17 No significant change Electronically Signed On 10-10-2024 09:58:17 CDT by Khadra Feliciano M.D. [email or web address]
[2024-10-09 19:37] LABS: Basophils % 0.3 %; Eosinophils % 0.1 %; Hematocrit 57.2 % (37-53); Lymphocytes # 1.2 10^3/uL (0.8-4.8); Lymphocytes % 8.8 %; Mean Corpuscular HGB Conc 33.4 g/dL (30-55); Mean Corpuscular Hemoglobin 31.7 pg (27-33); Mean Corpuscular Volume 94.9 fl (82-101); Mean Platelet Volume 11.7 fL (7.4-10.4); Monocytes # 1.5 10^3/uL (0.2-0.9); Monocytes % 10.4 %; Neutrophils # 11.19 10^3/uL (1.8-7.7); Neutrophils % 79.9 %; Nucleated Red Blood Cells % 0 %; Platelet Count 155 10^3/cmm (157-399); Red Blood Count 6.03 10^6/uL (3.85-5.65); Red Cell Distribution Width 14.6 % (12.1-15.1)
[2024-10-09] MEDS: iohexol 350 mg/mL 500 mL Btl (per mL) IV (19:42)
[2024-10-09 19:48] LABS: INR 0.98 (0.8-1.2)
[2024-10-09 19:58] LABS: Alanine Aminotransferase 17 U/L (0-41); Albumin Level 4.3 g/dL (3.5-5.2); Alkaline Phosphatase 99 U/L (40-130); Anion Gap 25.9 (5-19); Aspartate Amino Transferase 35 U/L (0-40); Blood Urea Nitrogen 38 mg/dL (8-23); Calcium 10.1 mg/dL (8.5-10.5); Carbon Dioxide 20 mmol/L (22-29); Chloride 105 mmol/L (98-107); Creatinine Clr Calc Pharmacy 34.5144; Globulin 3.7 g/dL (1.3-4.6); Glucose 127 mg/dL (65-115); Magnesium 2.5 mg/dL (1.7-2.3); Osmolality Calculated 315 mOsm/kg (285-295); Potassium 3.9 mmol/L (3.5-5.1); Sodium 147 mmol/L (136-145); Total Bilirubin 1.7 mg/dL (0.15-1.2)
[2024-10-09 19:59] LABS: Creatine Phosphokinase 420 U/L (39-308)
[2024-10-09] MEDS: sodium chloride 0.9% 1,000 ML 999 ML IV ×2 (20:02→20:51)
[2024-10-09 20:07] LABS: Thyroid Stimulating Hormone 3.15 uIU/mL (0.27-4.20)
[2024-10-09 20:24] LABS: Bilirubin Urine 1+ (Negative); Blood Urine Negative (Negative); Glucose Urine UA Negative (Normal); Ketones Urine 1+ (Negative); Leukocyte Esterase Urine Trace (Negative); Nitrate Urine Negative (Negative); Protein Urine 2+ (Negative); Specific Gravity, Urine 1.023 (1.005-1.030); Urine Appearance Clear (CLEAR); Urine Color Dark Yellow (Yellow); pH Urine 5.5 (5-7)
[2024-10-09 20:29] LABS: Add Urine Microscopic? YES; Bacteria Urine None Seen /hpf; Hyaline Casts Urine 11.97 /lpf; Squamous Epithelial Cell Urine 0-5 /hpf (0-5); Universal Test for UA Present (0); WBC Urine 0-5 /hpf (0-5)
[2024-10-09 20:48] LABS: Add Urine Culture? No; Mucus Urine 1+ /hpf
[2024-10-09] MEDS: esmolol drip 2,500 MG/250 ML PREMIX 17.69 MG IV (21:00)
--- NOTE | 2024-10-09 22:43 | PC.NURSE ---
Sherwin white was continued upon transfer by [facility].
== END 2024-10-09 22:42 | disposition short-term general hospital (02) ==
PROVIDERS: Emergency Provider Emergency Medicine; PCP Nurse Practitioner Family
DX: R41.82 Altered mental status, unspecified (principal); I71.40 Abdominal aortic aneurysm, without rupture, unspecified; W19.XXXA Unspecified fall, initial encounter; Z79.02 Long term (current) use of antithrombotics/antiplatelets
CPT/HCPCS: 36415; 51702; 70450; 71275; 72125; 74174; 80053; 81001; 82550; 83735; 84443; 85025; 85610; 93005; 96361; 96365; 99285; J3490; J7030